=== PATIENT | female | born 1950 | race African-American/Black ===

== ENCOUNTER 2023-08-15 13:52 | Outpatient (OUT) | payer OTHER, SELFPAY ==
--- NOTE | 2023-08-15 14:10 | XR_ITS ---
The [address] [address] Patient Name: JUHI FAM MRN: [id number] date: 1950 Sex: F Assigned Patient Location: [facility] Current Patient Location: Accession/Order Number: [id number] Exam Date: 08/15/2023 14:15 Report Date: 08/16/2023 08:32 At the request of: ALEX WASHINGTON Procedure: XR chest 2V EXAMINATION: XR chest 2V HISTORY: Bronchitis J40 COMPARISON: No relevant comparison available. FINDINGS: LUNGS: No significant pulmonary parenchymal abnormalities. VASCULATURE: No increased pulmonary vasculature. PLEURA: No pneumothorax, effusion, or pleural thickening. CARDIAC: No cardiomegaly or cardiac silhouette abnormality. MEDIASTINUM: No visible mass or adenopathy. BONES: No fracture or visible bone lesion. OTHER: Negative. XR/XR chest 2V IMPRESSION: 1. Clear lungs. No acute cardiopulmonary process. Electronically authenticated by: ALEXA DOTY Date: 08/16/2023 08:32
== END 2023-08-15 13:53 | disposition home or self-care (01) ==
LOC: RAD 14:01
PROVIDERS: PCP Nurse Practitioner Family; Visit Provider Nurse Practitioner Family
DX: J40 Bronchitis, not specified as acute or chronic (principal); R09.89 Other specified symptoms and signs involving the circulatory and respiratory systems; R06.02 Shortness of breath
CPT/HCPCS: 71046

== ENCOUNTER 2025-09-12 10:22 | Outpatient (OUT) | payer OTHER, SELFPAY ==
--- OUTSIDE RECORDS SUMMARY | 2025-09-03 07:25 | XMS_ITS | Continuity of Care Document ---
Author Organization [facility] Address [address] [place] [address] Phone Care Team Providers Care Manager Card Name Role Phone Yumiko Morrell APRN Primary Care Provider Yumiko Morrell APRN Attending Provider Khris Rangel MD Attending Provider NON STAFF Primary Care Provider Unavailabl e Care Teams Patient Care Team Team Status: Active Member Role/Relationship Status Dates NON STAFF Primary Care Provider Active Visit Care Team Team Status: Inactive Member Role/Relationship Status Dates Yumiko Morrell APRN DIRECTOR FINANCIAL PLANNING-C Primary Care Provider Active Start: 2025 End: July 25, 2025Yumiko Morrell APRN DIRECTOR FINANCIAL PLANNING-CAttending ProviderActive Start: 2025 End: 2025 Visit Care Team Team Status: Inactive Member Role/Relationship Status Dates Yumiko Morrell APRN DIRECTOR FINANCIAL PLANNING-C Attending Provider Act leslie Start: 2025 End: 2025 Patient Care Team Team Status: Inactive Member Role/Relationship Status Dates Khris Rangel MD Attending Provider Active Star t: September 03, 2025 End: September 03, 2025NON STAFFPrimary Care ProviderActiveStart: September 03, 2025 End: September 03, 2025 Chief Complaint and Reason for Visit Chief Complaint Admit Date UA:Burning/Blood 2025 11 :06am r30.0 2025 11 :09am F/U AFTER DEXA September 03, 2025 11:57am Reason for Visit Admit Date UTI (urinary tract infection) July 11:06am Encounter for medication management Arthurchung eva 2024 11:57am Osteopenia September 03, 2025 11:57am Post-menopause September 03, 2025 11:57am Vitamin D deficiency September 03, 2025 11:57am Allergies, Adverse Reactions, Alerts Allergen Type Severity Reaction Last Updated Verified Status No Known Allergies Allergy Unknown September 03, 2025 12:03pmYesActive Social History Smoking Status Status Start Date End Date Date of Observa tion Smokes tobacco daily (finding) May 11, 2024 11:28am Observation Status Observation Response Date of Response Legal Sex Female (finding) [facility] 1949 Family History Relationship Condition Age at Onset Recorded Date/T rogers mother Diabetes mellitus Unknown DementiaUnknownHypertensionUnknowngrandparentDiabetes mellitusUnknownfather DeceasedUnknownHeart diseaseUnknownmotherDementiaUnknownFamily history of mental disorderUnknownHistory of strokeUnknownDiabetes mellitusUnknownHypertension Unknown Problems Active Problems Problem Diagnosis/Recorded Date Onset Date Stat us Depression with anxiety April 24, 2024 9:13am Unknown Active UTI (urinary tract infection) July 14, 2022 6:2 2am Unknown Active Medicare annual wellness vis it, subsequent May 13, 2024 9:47am Unknown Active Nicotine dependence May 13, 2024 9:56am Unknown Active Screening for osteoporosis May 13, 2024 9:51am Unkn own Active Mild hyperlipidemia April 24, 2024 9:13am Unknown Active Encounter for medication management January 04, 2025 2 :02pm Unknown Active Elevated parathyroid hormone March 12, 2025 6:54am Unk nown Active Vitamin B12 deficiency April 24, 2024 9:13am Unknown Active Osteoporosis July 04, 2024 9:07am Unknown Active Age related osteoporosis June 28, 2024 12:59pm U nknown Active Post-menopause May 13, 2024 9:52am Unknown Act leslie Osteopenia September 03, 2025 12:18pm Unknown Active Encounter for long-term curr ent use of medication July 03, 2024 2:06pm Unknown Active Essential hypertension April 24, 2024 9:13am Unknown Active BMI 20.0-20.9, adult May 13, 2024 9:50am Unknown Active Screening for lung cancer May 13, 2024 9:51am Unkno wn Active Screening for breast cancer May 13, 2024 9:51am Unk nown Active Acid reflux July 14, 2022 6:23am Unknown Active Rosacea April 24, 2024 9:13am Unknown Active Chronic bronchitis April 24, 2024 9:13am Unknown Active Vitamin D deficiency April 24, 2024 9:13am Unknown Active Inactive/Resolved Problems Problem Diagnosis/Recorded Date Onset Date Stat Acute maxillary sinusitis October 31, 2024 1:48pm Unk nown Resolved Rash November 28, 2024 11:19am Unknown R esolved Vertigo November 28, 2024 11:18am Unknown R esolved Medications Medication Status Dose Units Route Directions Qty Days Refills S tart Date Stop Date End Date Reason(s) Instructions Adherence Varenicline Tartrate (Chanti x Starting Month Box) 0.5 mg (11)- 1 mg (42) tablets,dose pack Discontinued 0 POper package ueehrldotw904Rzcuhiuvs 8th, 2024 11:00pmJanuary 2024 1:28pm Nicotine dependence Nicotine dependence, unspecified, uncomplicatedPO PER PKG DIRNeedle (Disp) 23 Gauge (Bd Regular Bevel [place]) 23 gauge x 3/4 needleActive0.Jggfy1186 July 01, 2024 11:00pmCobalamin deficiency Deficiency of other specified B group vitaminsAs directedDesoximetasone 0.25 % hgdzaXhpukgmdrjmz0PQMFFJBUCWEEGKpuiz as needed for skin ixqiqnruut406Gkysjozxg 8th, 2024 11:00pmOctober 2024 6:26amRosacea Rosacea, unspecifiedCholecalciferol (Vitamin D3) 125 mcg (5,000 unit) capsule Aoduhvdskofk089OWGMVLeqwt98415Iheuosnxq 18th, 2024 11:00pmNovember 2024 12:05pmEncounter for long-term current use of medication Vitamin D deficiency Age related osteoporosis Other intermediate accountant (current) drug therapy Vitamin D deficiency, unspecified Age-related osteoporosis without current pathological fractureCyanocobalamin (Vitamin B-12) 1,000 mcg/mL deuuglfpDjvpeerezyng5696SRMKIkocsj pytyh3415Apgt 2024 3:17pmNovember 2024 12:04pmCobalamin deficiency Deficiency of other specified B group vitaminsSyringe With Needle (Bd Eclipse Luer-Jigna) 3 mL 23 x 1 syringeDiscontinued0.Pcwfs285Cccz 2024 11:00pm July 30, 2025 12:15pmCobalamin deficiency Deficiency of other specified B group vitaminsInject one time monthly.Syringe With Needle (Bd Eclipse Luer-Jigna) 3 mL 23 x 1 syringeActive0.Rdmjc687Yjcougo 2024 12:15pmCobalamin deficiency Deficiency of other specified B group vitaminsInject one time monthly. Desoximetasone 0.25 % zqphvEpmjch0EMCVGXEMCDUWDHaarf as needed for skin dqxnraxaka367Dcwsoot 2024 6:26amRosacea Rosacea, unspecifiedUnknownHydrocodone-Acetaminophen (Forbes) 5-325 mg tablet Discontinued1 - 2TABPOEVERY 4-6 HOURS as needed for lect224Heoc 2017July 14, 2022 6:13amPostoperative pain of extremity Laceration of flexor tendon of hand Other acute postprocedural painSulfamethoxazole-Trimethoprim (Bactrim Ds) 800- 160 mg leltxjOxzgegpatnec9ZTSPZHdygv fjpxm2788Oxoa 2017 11:00pmpt2021 6:15amHydrocodone-Acetaminophen (Forbes) 5-325 mg tabletDiscontinued1 - 2TABPOEVERY 4-6 HOURS as needed for Pwlz710Vnvscke 2021 6:14amPostoperative pain of extremity Contracture of joint of finger Other acute postprocedural pain Contracture, unspecified handCephalexin (Keflex) 500 mg cbgctlcUlrgkrccsgfm507BW FOH5Q4206Virgonj 2017 11:00pmSept2021 6:13amDesoximetasone 0.25 % IevlcYdjskwlcudcg9KNPQYVHUPQNKMBFNUQiswoXxhor 2017 11:00pmJuly 14, 2022 6:21amrosciaAscorbic Acid (Vitamin C) (Vitamin C) 1,000 mg Tablet Extended RfjrjkzSvdzzezslaha2XGLFRDvicmTdidk 2017 11:00pmJuly 14, 2022 6:20amDiltiazem Hcl (Cardizem Cd) 300 mg Capsule,Extended Release 24hr Jdfkdevqodte522DTSSPlxceIrojs 2017 11:00pmJuly 14, 2022 6:21amhtn Cyanocobalamin (Vitamin B-12) 1,000 mcg/mL UbxxmjadHrtozlscsqjk8BQSQzhmum month January 11, 2018 11:00pmJuly 2023 11:00amOmeprazole 20 mg capsule,delayed release(DR/EC)Imvfkwrppgwc32EWFUZcefrVpkdi 2017 11:00pmJuly 2023 11:00amgerdAlbuterol Sulfate (Proair Hfa) 90 mcg/actuation Hfa Aerosol Inhaler Coxewymbfzkk5DXDOYEOFBIWPIHN6J as needed for shortness of breath wheezingJoint [facility] 2017 11:00pmJuly 2023 11:00amPrenat.Vits,Noe,Mjv-Vgdw-Ibqpf ( Vitamin) QpmrlxXhqayqsrttmd2XPBOQLtqywNlwpi 2017 11:00pm July 14, 2022 6:15amCalcium Citrate-Vitamin D3 (Calcium Citrate + D) 315- 200 mg-unit NazfdqKvnngvzdoann8WGMEPMayqcIhayp 2017 11:00pmJuly 2023 9:15amSulfamethoxazole-Trimethoprim (Bactrim Ds) 800-160 mg tabletDiscontinued1 TABPOTwice ivhcd228Meigt 2017 11:00pmy 2017 8:36amHydrocodone- Acetaminophen (Forbes) 5-325 mg tabletDiscontinued1 - 2TABPOEVERY 4-6 HOURS as needed for Iuto338Cxkmq 2021 6:14amPostoperative pain of extremity Nontraumatic rupture of tendon of finger of right hand Other acute postprocedural pain Spontaneous rupture of other tendons, right handMeloxicam 15 mg Tablet Ckvwuwbsquxl34TLAZJivutGyiiwynng 20th, 2022 11:00pmJuly 2023 9:15amBaclofen 10 mg FozfwnAzixlkychbnq05MAJRUnbdmZxomkwcun 20th, 2022 11:00pmJuly 2023 9:15amCephalexin 500 mg FcenmkhErehlcgyifff534OVFAAnfkq dailySept2021 11:00pmJuly 2023 9:15amCholecalciferol (Vitamin D3) (Vitamin D3) 50 mcg (2,000 unit) PvbanhrNfxzfsylepfg26LLLYYRdhkjWgzebhxtt 20th, 2022 11:00pmJuly 2023 9:15amMagnesium Oxide 400 mg magnesium QytdtiFiqmphivfviz640BBVNKjiwt July 13, 2022 11:00pmJuly 2023 9:15amCalcium Citrate-Vitamin D3 500 mg-12.5 mcg (500 unit) Tablet,ChewableDiscontinuedTABPOSept2021 11:00pmSept2021 6:15amCalcium Carbonate-Vitamin D3 (Calcium 600 With Vitamin D3) 600 mg-12.5 mcg (500 unit) capsuleActiveCAPPOSept2023 11:00pmUnknownMultivit With Min-Folic Acid (One Daily Womens 50 Plus) 0.4 mg tabletActiveTABPOSeptember 2023 11:00pmUnknownDoxycycline Monohydrate 100 mg tzblhzPkytwghsyrij150ZHUOJomzx xnyxu16040Vvjixfeg 2024 12:00amJuly 2024 10:34amMeclizine 25 mg uqrowxLhzluixckepf61AQOBWibof times daily as needed for ommkaolbj55360Uvxvxdhr 2024 12:00amNovember 2024 12:05pmVertigo Dizziness and giddinessTriamcinolone Acetonide 0.1 % ojdbuNqxwfzgtvyfi0XZGGOZ TOPICALTwice dqutg0612Yfkbvehj 2024 12:00amNovember 2024 12:06pm Osteoporosis Rash Age-related osteoporosis without current pathological fracture Rash and other nonspecific skin eruptionAmlodipine 5 mg bjkqieXcgxsivgegdu5TDPT DailyJuly 2023 11:00pmJuly 2023 11:00amFluticasone Propionate 50 mcg/actuation spray,ugmeygfcxcQuanwppytixc9SWFXJPUDVESTTHQNbpnfLkrr 1st, 2024 11:00pmJanuary 2024 1:27pmLosartan 100 mg fndygdIgtznzuzhdzm867OTHKVgyqf April 23, 2024 11:00pmJuly 2023 11:00amAmlodipine 5 mg tabletDiscontinued5 XZXRHjzny82784Barh 2023 10:57amJanuary 2024 1:48pmPrimary hypertension Essential (primary) hypertensionAlbuterol Sulfate (Proair Hfa) 90 mcg/actuation HFA aerosol blifliaBninfrhshgfj7FYBOLROFJMWOGWJ4W as needed for shortness of breath wheezing6.7305July 2023 10:57amJanuary 2024 1:48pmChronic bronchitis Unspecified chronic bronchitisCyanocobalamin (Vitamin B-12) 1,000 mcg/mL ltnigkpmEaypxyihpxlk5936DGHHPvrlrf aymgq16573Vcpv 2023 10:58amJanuary 2024 1:48pmCobalamin deficiency Deficiency of other specified B group vitaminsLosartan 100 mg tabletDiscontinued 779WTWQQwmsy00813Wjqp 2023 10:58amJanuary 2024 1:48pmPrimary hypertension Essential (primary) hypertensionOmeprazole 20 mg capsule,delayed release(DR/EC) Ytpcuuwvtznu63DVDHQcjww58735Zlzn 2023 10:59amJanuary 2024 1:48pm Gastroesophageal reflux disease Gastro-esophageal reflux disease without esophagitis gerdRomosozumab-Aqqg (Evenity) 210mg/2.34mL ( 105mg/1.17mLx2) syringe Zjpyyyeifnle375ZMDIDDQNfarmk 2024 12:00amNovember 2024 12:06pmAmlodipine 5 mg wdhumzBlubhrrgyiry3CSYCNnvdk56811Cvnbhzr 2024 1:47pm May 20, 2025 10:52amPrimary hypertension Essential (primary) hypertensionCyanocobalamin (Vitamin B-12) 1,000 mcg/mL qnixvcdkZpmhvn1803EVASNyqgrb dywii0016Xiiagqs 2024 1:47pmCobalamin deficiency Deficiency of other specified B group vitaminsUnknownLosartan 100 mg tablet Uvujfkebvbmy563CHWWRfeaq21444Tupcfao 2024 1:47pmJuly 2024 10:52am Primary hypertension Essential (primary) hypertensionOmeprazole 20 mg capsule,delayed release(DR/EC) Kxyynljxhvvx12QQVZYreij00212Btqawez 2024 1:47pmJuly 2024 10:52am Gastroesophageal reflux disease Gastro-esophageal reflux disease without esophagitis gerdAlbuterol Sulfate 90 mcg/actuation HFA aerosol tryehuyBksmkrbxnltc4WRUE HWWCXBLKJLE8U as needed for shortness of breath wheezing6.uary 2024 1:48pmJuly 2024 12:12pmChronic bronchitis Unspecified chronic bronchitisAmoxicillin-Pot Clavulanate 875-125 mg tablet Gaiwoecbrvja8IDMPDXysej pmqcl8894Nlllemh 2024 12:00amFebruary 2024 11:17amAcute maxillary sinusitis Acute maxillary sinusitis, unspecifiedAmlodipine 5 mg iinkvnTjkrac8YLKLRvacz8966 1July 2024 10:51amPrimary hypertension Essential (primary) hypertensionUnknownLosartan 100 mg lrdthpCknjtl116WZAEPwpxq 56920Xqgr 2024 10:51amPrimary hypertension Essential (primary) hypertensionUnknownOmeprazole 20 mg capsule,delayed release(DR/EC)Ikjbsq53IVREMwyag71034Ithh 2024 10:51amGastroesophageal reflux disease Gastro-esophageal reflux disease without esophagitis gerdUnknownAlbuterol Sulfate 90 mcg/actuation HFA aerosol cvswiagBfymgf7ZTUA IUFJVONAZUU8Y as needed for shortness of breath wheezing6.05July 2024 12:12pmChronic bronchitis Unspecified chronic bronchitisUnknownCephalexin 500 mg lbqcuzyWdrzrbbtuojf113LT POTwice pwtdv5373Bzzimfp 2024 11:00pmNovember 2024 12:04pmUrinary tract infection Urinary tract infection, site not specified Immunizations Immunization Event Date Not Given Reason Dose Number 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 Vaccine, 23 valentJuly 2018 Quadrivalent InfluenzaDecember 2014Tetanus, Diphtheria, Pertussis (Tdap) January 20, 2022Trivalent Influenza VaccineOctober 2015Trivalent Influenza VaccineSeptember 2019 Medical Equipment Device Date Implanted Device Details ALEXIS LION TENDON January 19, 2018 SUTURE ANCHOR, GUERO CORKSCREWJune 2017 Procedures Procedure Date Performed Status Urine Culture 2025 completed Relevant Diagnostic Tests and/or Laboratory Data Laboratory Results Test Collection Date/Time Result Date/Time Result Interpretation Reference Range Result Comment Performing Site Urine Color 2025 10:05am 2025 10 :13am Yellow Urine AppearanceOctober 2024 10:05amOctober 2024 10:13amCloudyUrine Specific GravityOct2024 10:05amOctober 2024 10:13am1.010Urine pH 2025 10:05amOctober 2024 10:13am5.0Urine Leukocyte Esterase 2025 10:05amOctober 2024 10:13amModerateUrine NitriteOctober 2024 10:05amOctober 2024 10:13amNegativeUrine ProteinOctober 2024 10:05amOctober 2024 10:56om95Wkiom Glucose (UA)2025 10:05am 2025 10:13amNegativeUrine KetonesOctober 2024 10:05amOctober 2024 10:13amNegativeUrine UrobilinogenOctober 2024 10:05amOctober 2024 10:13am0.2Urine BilirubinOctober 2024 10:05amOctober 2024 10:13am NegativeUrine Occult BloodOctober 2024 10:05amOctober 2024 10:13am Large Microbiology Results Procedure Source Result Collection Date/Time Result Date/Time Result Comment Performing Site Urine Culture Urine bacilli - 2 Days July 11:09am July 27, 2025 10:56am [facility] [id number] [address] [place] [id number] Vital Signs Vital Reading Result Reference Range Collection Date/Time Height 72 [in_i] September 03, 2025 12:29whRwzrdh23.13 kgNov2024 12:00pmHeart Rate74 /gsl03-122FbwgwfbySeptember 03, 2025 12:00pmOxygen saturation by Pulse qdypcpla97 % 95-100September 03, 2025 12:00pmBMI (Body Mass Index)20.0 kg/c7EicqjcycSeptember 03, 2025 12:00pm Advance Directives Advance Directive Response Recorded Date/ Time Advance Directives No November 5:01pm Insurance Providers Guarantor Melanie Brandt Address [address] [place] [address] [place] [id number] Info.Home Phone: Payer Group Member ID Coverage Type Subscriber Relationship to Subscriber Effective Date Expiration Date Aetkelley [facility] Id: [id number] L Brandt Id: [id number] [address] [place] [address] [address] [facility] [address] Home Phone: Email: [email or web address] [email or web address] Encounter Location(s) Arrival/Admit Date Discharge/Departure Date Discharge/Departure Disposition Provider(s) Departed Physician/ Provider Office Visit -[facility] 2025 11:06am 2025 11:15am Discharged to home care or self care (routine discharge) Yumiko Morrell APRN CNP Departed Referred -[facility] 2025 11:09am 2025 11:10am Discharged to home care or self care (routine discharge) Yumiko Morrell APRN CNP Departed Physician/ Provider Office Visit -[facility] September 03, 2025 11:57am September 03, 2025 12:24pm Discharged to home care or self care (routine discharge) Khris Rangel MD Recent Diagnosis Onset Date Admit Date UTI (urinary tract infection) Unknown Oc tober 2024 11:06am Encounter for medication management Unknown September 03, 2025 11:57am Osteopenia Unknown September 03, 025 11:57am Post-menopause Unknown September 03 11:57am Vitamin D deficiency Unknown September 032024 11:57am Assessments Diagnosis Onset Date Resolution Status Admit Date [facility] (urinary tract infection) [facility] 20[facility] 11:06amEncounter for medication managementacute[facility] 11:57am[facility]acute[facility] 2024 11:57amPost-menopauseacute September 03, 2025 11:57amVitamin D deficiencyacuteMonroe [facility] Medical [facility] 2024 11:57am Plan of Treatment Author Yumiko Morrell [facility] 2024 10:18am Reviewed results of urine dipstick with patient, and given both symptoms and physical exam, explained that a urinary tract infection is likely. The patient is encouraged to increased fluid intake, take antibiotics as prescribed, and to finish the entire course of antibiotics. Urine culture to be completed and will call with results in 3- 5 days. The female patient is reminded that antibiotic therapy can alter the effectiveness of oral control pills, and to utilize other control methods while completing this course of therapy. Patient instructed to follow up if symptoms are not improving within the next 5-7 days. Signs and symptoms of worsening symptoms (including pyelonephritis, and urosepsis) are reviewed with the patient, and the patient is instructed to go to the ER if this would occur. Author Isabel [facility] 2024 12:24pmDexa scan reviewed in detail with patient, demonstrating evidence of slight improvement of osteoporosis, to the level of osteopenia. Extensive discussion about current condition and treatment options available. Advised patient on appropriate calcium intake of 1200mg/day by a combination of diet and supplementation. Also advised patient on appropriate vitamin D intake of 600-800 IU/day through diet and supplementation. We discussed safe levels of sun exposure to increase vitamin D as well. We discussed the importance of weight bearing and balance exercise to maintain and improve bone health. We discussed prescription treatment options in detail. Based on dexa scan, medical history, and patient lifestyle, we will proceed with once yearly IV Reclast at this time. Risks and benefits were discussed in detail. [Labs from [] reviewed]. [We will order additional labs to assess for any underlying condition contributing to patient's condition], [as well as a repeat calcium prior to starting prescription treatment if indicated.] [We will review additional labs and contact patient if they indicate the need for any change in discussed treatment plan]. Provided orders for calcium and vitamin d lab for patient to have done at her convenience. Future Tests Future scheduled test information is unavailable Pending Tests Pending diagnostic test information is unavailable Future Visits Future appointment information is unavailable Future Procedures Procedure Name Ordered Date Scheduled Date Vitamin D 25 Hydroxy Total September 03, 2025 1 2:19pm Future Medications Future medication information is unavailable Patient Instructions Patient instructions are unavailable
--- NOTE | 2025-09-12 10:27 | MM_ITS ---
Patient Name: JUHI FAM MR#: [id number] : 1950 Exam Date: 09/12/2025 Ordering Doctor: ALEX WASHINGTON [facility] RADIOLOGY REPORT PROCEDURE: MM TOMOSYNTHESIS SCREENING BI COMPARISON: MM TOMOSYNTHESIS SCREENING BI, 06/27/2024. INDICATIONS: Screening Calculator Name NCI Breast Cancer Risk Assessment Tool 5 Year Breast Cancer Risk 1.80% Lifetime Breast Cancer Risk 4.20% Personal Breast Cancer No Personal Ovarian Cancer No Treatments None Family Cancers None LOCATION: The [facility] BREAST COMPOSITION: There are scattered areas of fibroglandular density. FINDINGS: DIAGNOSTIC CATEGORY 1--NEGATIVE. RIGHT BREAST: No significant suspicious finding. LEFT BREAST: No significant suspicious finding. RECOMMENDATIONS: ROUTINE MAMMOGRAM AND CLINICAL EVALUATION IN 12 MONTHS. Dictated by: Orville Snow DO on 09/12/2025 at 15:21 Approved by: Orville Snow DO on 09/12/2025 at 15:21
--- OUTSIDE RECORDS SUMMARY | 2025-09-12 10:28 | XMS_ITS | Clinical Summary ---
Author Organization [facility] Address [address], [address] [place] [address] Care Team Providers Care Radiotelegraph Operator Name Role Phone Unavailable Primary Care Provider Unavailabl e Allergies No known active allergies Medications MedicationSigDispense QuantityRefillsLast FilledStart DateEnd DateStatus omeprazole 20 MG EC tablet Take 1 tablet by mouth dailyActive cyanocobalamin 1000 MCG/ML injection Inject 1 mL into the muscle every 30 daysActive Multiple Vitamins-Minerals (THERAPEUTIC MULTIVITAMIN-MINERALS) tablet Take 1 tablet by mouth dailyActive ibuprofen (ADVIL;MOTRIN) 600 MG tablet Take 1 tablet by mouth 3 times daily as needed for Pain 30 tablet 06/30/2024ctive calcium carbonate 600 MG TABS tablet Take 1 tablet by mouth dailyActive losartan (COZAAR) 100 MG tablet Take 1 tablet by mouth dailyActive desoximetasone (TOPICORT) 0.25 % cream Apply topically 2 times daily Apply topically 2 times daily.Active vitamin D (CHOLECALCIFEROL) 25 MCG (1000 UT) TABS tablet Take 1 tablet by mouth dailyActive fluticasone (FLONASE) 50 MCG/ACT nasal spray by Nasal route08/10/2023ctive Active Problems ProblemNoted DateDiagnosed DateAge-related osteoporosis without current pathological otkrtfrs37/24/2024 Encounters DateTypeDepartmentCare InqqLayrbnmwyxw63/09/2025Transcribe Orders [facility] [address] [place] [address] Khris Rangel MD Encounter for long-term (current) use of medications (Primary Dx); Asymptomatic menopausal state; Osteoporosis, unspecified osteoporosis type, unspecified pathological fracture cvrcfzog25/09/2025Transcribe Orders [facility] [address] [place], [place] [id number] Khris Rangel MD Asymptomatic postmenopausal status (Primary Dx); Age related osteoporosis, unspecified pathological fracture mvsprenc51/04/2025 Transcribe Orders [facility] [address] [place] [address] Khris Rangel MD Osteoporosis, unspecified osteoporosis type, unspecified pathological fracture presence (Primary Dx)06/25/2025Orders Only [facility] [address] [place], [place] [address] Khris Rangel MD from Last 3 Months Immunizations ImmunizationAdministration DatesNext DueTDaP, ADACEL (age 10y-64y), BOOSTRIX (age 10y+), IM, 0.5mL01/20/2022 Social History Tobacco UseTypesPacks/DayYears UsedDateSmoking Tobacco: Every DayCigarettes Smokeless Tobacco: Never Tobacco Cessation:Ready to Q uit: Not Asked; Counseling Given: Not Answered Alcohol UseStandard Drinks/WeekCommentsYes0 (1 standard drink = 0.6 oz pure alcohol)AUDIT-CAnswerDate RecordedQ1: How often do you have a drink containing alcohol?2-3 times a week06/30/2024Q2: How many drinks containing alcohol do you have on a typical day when you are drinking?1 or Q3: How often do you have six or more drinks on one occasion?Never06/30/2024CommentsNoSex and Gender InformationValueDate RecordedSex Assigned at BirthNot on fileLegal Sex Rytqbf3812/03/2012 11:13 AM ESTGender IdentityNot on fileSexual OrientationNot on file Last Filed Vital Signs Vital SignReadingTime TakenCommentsBlood Rgatyarq462/6608 9:56 AM EDT Bxxiq699106/03/2025 9:56 AM HFNQmzfmgtqiwn05.6 ??C (97.9 ??F)06/03/2025 9:56 AM EDTRespiratory Zvll007106/03/2025 9:56 AM EDTOxygen Yyehgpzfvf86%12/09/2024 9:38 PM ESTInhaled Oxygen Concentration--Dtmsfy73.1 kg (148 lb)06/03/2025 9:56 AM EDT Kbefyk489.9 cm (6')06/03/2025 9:56 AM EDTBody Mass Index20.0706/03/2025 9:56 AM EDT Plan of Treatment Health MaintenanceDue DateLast DoneCommentsDepression Uweehe5307/25/1964Hepatitis C lmwvhm4007/25/19703721Urepuu41/02/0374Rrrdbxckuiy81/02/1997Colorectal Cancer Screen 1997FIT/FOBT: Average risk1997Fecal-DNA (Cologuard): Average risk 1997Sigmoidoscopy/CT yomymbdiuhho98/02/1997Shingles vaccine (1 of 2) 2002Annual Wellness Visit (Medicare Advantage)5COVID-19 Vaccine ( season)/, 08/03/2021, 07/13/2021reast cancer ffhkyh52/4Respiratory Syncytial Virus (RSV) or age 60 yrs+ (1 - 1-dose 75+ series)2027DTaP/Tdap/Td vaccine (2 - Td or Tdap) /2Pneumococcal 50+ years MfwgmnoUaovftlqx00/12/2024, 04/23/2019, 04/20/2018Flu bulrkycLmrgatwwz20/28/2025, 09/04/2024, 06/24/2023, Additional history existsDEXA (modify frequency per FRAX score)Completed 07/02/2025, 06/27/2024Hepatitis A vaccineAged OutNo longer eligible based on patient's age to complete this topicHepatitis B vaccineAged OutNo longer eligible based on patient's age to complete this topicHib vaccineAged OutNo longer eligible based on patient's age to complete this topicMeningococcal (ACWY) vaccineAged OutNo longer eligible based on patient's age to complete this topicMeningococcal B vaccineAged OutNo longer eligible based on patient's age to complete this topicPolio vaccineAged OutNo longer eligible based on patient's age to complete this topic Procedures Procedure NamePriorityDate/TimeAssociated DiagnosisCommentsDEXA BONE DENSITY AXIAL RFCVUEELWaxeahe03/09/2025 10:26 AM EDT Asymptomatic menopause SARTHAK CONNOR DIGITAL SCREEN VQRZAONJVZccfxyl25/04/2024 9:46 AM EDT Encounter for screening mammogram for malignant neoplasm of breast from Last 3 Months or Most Recently Relevant to Health Maintenance Results * DEXA BONE DENSITY AXIAL SKELETON (07/02/2025 10:26 AM EDT)Anatomical Region LateralityModalityHead, C-spine, T-spine, L-spine, ChestRadiographic Imaging Specimen (Source)Anatomical Location / LateralityCollection Method / Volume Collection TimeReceived Time07/04/2025 11:12 AM EDT Impressions 07/04/2025 12:02 PM EDT Osteopenia by WHO criteria. RECOMMENDATIONS: 1. All patients should optimize their calcium and vitamin D intake. 2. Consider FDA-approved medical therapies in postmenopausal women and men aged 50 years and older, based on the following: - A hip or vertebral (clinical or morphometric) fracture - T-score less than or equal to -2.5 at the femoral neck or spine after appropriate evaluation to exclude secondary causes - Low bone density (T-score between -1.0 and -2.5 at the femoral neck or spine) and a 10-year probability of a hip fracture greater than or equal to 3% or a 10-year probability of a major osteoporosis-related fracture greater than or equal to 20% based on FRAX calculation. - Clinician judgment and/or patient preferences may indicate treatment for people with 10-year fracture probabilities above or below these levels - Further guidance on treatment can be found at the National Osteoporosis Foundation's website bonesource.org. 3. Patients with diagnosis of osteoporosis or at high risk for fracture should have regular bone mineral density tests. For patients eligible for Medicare, routine testing is allowed once every 2 years. The testing frequency can be increased to one year for patients who have rapidly progressing disease, those who are receiving or discontinuing medical therapy to restore bone mass or have additional risk factors. Template code: ??RPnmNSD_DX_dxa Narrative 07/04/2025 12:02 PM EDT EXAMINATION: BONE DENSITOMETRY 07/02/2025 10:26 am TECHNIQUE: A bone density dual x-ray absorptiometry (DXA) scan was performed of the lumbar spine and left hip on a PerfectServe system. COMPARISON: 06/27/2024. HISTORY: ORDERING SYSTEM PROVIDED HISTORY: Asymptomatic menopause Gender: F Age: 74 y/o FINDINGS: LUMBAR SPINE: L1-L4 BMD: 1.487 g/cm2 T-score: 2.6 Z-score: 3.5 Statistical comparison could not be made to the prior exam due to unavailability of prior imaging. LEFT TOTAL HIP: BMD: 0.741 g/cm2 T-score: -2.1 Z-score: -1.5 LEFT FEMORAL NECK: BMD: 0.801 g/cm2 T-score: -1.7 Z-score: -0.8 Statistical comparison could not be made to the prior exam due to unavailability of prior imaging. FRAX 10-YEAR PROBABILITY OF FRACTURE: 10-year fracture risk is performed using the [employer] FRAX calculator based on patient-reported risk factors. Major osteoporotic fracture: 4.6% Hip fracture: 1.5% Other situations known to alter the reliability of the FRAX score should be considered when making treatment decisions, including chronic glucocorticoid use and past treatments. ??Further guidance on treatment can be found at the National Osteoporosis Foundation's website bonesource.org. Procedure Note Buzz Henry MD - 07/04/2025 EXAMINATION: BONE DENSITOMETRY 07/02/2025 10:26 am TECHNIQUE: A bone density dual x-ray absorptiometry (DXA) scan was performed of the lumbar spine and left hip on a PerfectServe system. COMPARISON: 06/27/2024. HISTORY: ORDERING SYSTEM PROVIDED HISTORY: Asymptomatic menopause Gender: F Age: 74 y/o FINDINGS: LUMBAR SPINE: L1-L4 BMD: 1.487 g/cm2 T-score: 2.6 Z-score: 3.5 Statistical comparison could not be made to the prior exam due to unavailability of prior imaging. LEFT TOTAL HIP: BMD: 0.741 g/cm2 T-score: -2.1 Z-score: -1.5 LEFT FEMORAL NECK: BMD: 0.801 g/cm2 T-score: -1.7 Z-score: -0.8 Statistical comparison could not be made to the prior exam due to unavailability of prior imaging. FRAX 10-YEAR PROBABILITY OF FRACTURE: 10-year fracture risk is performed using the [employer]RAX calculator based on patient-reported risk factors. Major osteoporotic fracture: 4.6% Hip fracture: 1.5% Other situations known to alter the reliability of the FRAX score shouldbe considered when making treatment decisions, including chronicglucocorticoid use and past treatments. Further guidance on treatment can be found atthe National Osteoporosis Foundation's website bonesource.org. IMPRESSION: Osteopenia by WHO criteria. RECOMMENDATIONS: 1. All patients should optimize their calcium and vitamin D intake. 2. Consider FDA-approved medical therapies in postmenopausal women andmen aged 50 years and older, based on the following: - A hip or vertebral (clinical or morphometric) fracture - T-score less than or equal to -2.5 at the femoral neck or spine after appropriate evaluation to exclude secondary causes - Low bone density (T-score between -1.0 and -2.5 at the femoral neck or spine) and a 10-year probability of a hip fracture greater than or equalto 3% or a 10-year probability of a major osteoporosis-related fracturegreater than or equal to 20% based on FRAX calculation. - Clinician judgment and/or patient preferences may indicate treatmentfor people with 10-year fracture probabilities above or below these levels - Further guidance on treatment can be found at the NationalOsteoporosis Foundation's website bonesource.org. 3. Patients with diagnosis of osteoporosis or at high risk for fracture should have regular bone mineral density tests. For patients eligiblefor Medicare, routine testing is allowed once every 2 years. The testing frequency can be increased to one year for patients who have rapidly progressing disease, those who are receiving or discontinuing medicaltherapy to restore bone mass or have additional risk factors. Template code: RPnmNSD_DX_dxa Authorizing ProviderResult TypeResult StatusThomas A Olexa MDIMG DEXA ORDERABLES Final Result * SARTHAK CONNOR DIGITAL SCREEN BILATERAL (06/27/2024 9:46 AM EDT)Anatomical Region LateralityModalityBreastBilateralMammographySpecimen (Source)Anatomical Location / LateralityCollection Method / VolumeCollection TimeReceived Time 07/13/2024 11:41 AM EDT Impressions 07/13/2024 11:42 AM EDT No mammographic evidence of malignancy BIRADS: BIRADS - CATEGORY 1 Negative. ??Normal interval follow-up is recommended in 12 months. OVERALL ASSESSMENT - NEGATIVE A letter of notification will be sent to the patient regarding the results. The [employer] recommends annual mammograms for women 40 years and older. Performing Facility: [place] [id number] [facility] 07/13/2024 11:42 AM EDT EXAMINATION: SCREENING DIGITAL BILATERAL MAMMOGRAM WITH TOMOSYNTHESIS, 06/27/2024 TECHNIQUE: Screening mammography was performed with tomosynthesis including MLO and CC views of the bilateral breasts. Computer aided detection was used for the interpretation of this exam. COMPARISON: June 08, 2023 and May 31, 2022 HISTORY: Screening. FINDINGS: There are scattered areas of fibroglandular density. ??There is no dominant mass, architectural distortion or concerning grouping of microcalcification in either breast. Authorizing ProviderResult TypeResult StatusJennifer Rohrbacher GROUN[employer]KEEPING YARDMAN - CNPIMG MAMMOGRAPHY ORDERABLESEdited Result - Final from Last 3 Months or Most Recently Relevant to Health Maintenance [place] [address] * Guarantor: Melanie Brandt TypeRelation to PatientDate of BirthPhone Billing AddressThird Green Party [id number] [facility] [address] [place] [phone]
--- OUTSIDE RECORDS SUMMARY | 2025-09-12 10:28 | XMS_ITS | Clinical Summary ---
Author Organization [facility] Address [address] [place] [address] Care Team Providers Care Program Director Scouting Name Role Phone Unavailable Primary Care Provider Unavailabl e Social History Tobacco UseTypesPacks/DayYears UsedDateSmoking Tobacco: Never Assessed CommentsUnknownSex and Gender InformationValueDate RecordedSex Assigned at Not on fileLegal CsbFhbtyk22/15/2023 6:43 PM EDTGender IdentityNot on fileSexual OrientationNot on file Last Filed Vital Signs Vital SignReadingTime TakenCommentsBlood Jeenshzv127/8809 12:00 PM EDT Pulse--Temperature--Respiratory Rate--Oxygen Saturation--Inhaled Oxygen Concentration--Cuhtzl58.2 kg (157 lb)06/29/2022 12:00 PM WFWRrciqt997.8 cm (5' 10 )06/29/2022 12:00 PM EDTBody Mass Index22.5309 12:00 PM EDT Plan of Treatment Not on file
--- OUTSIDE RECORDS SUMMARY | 2025-09-12 10:28 | XMS_ITS | Patient Health Record ---
Author Organization [facility] Address [address] [place] [address] Care Team Providers Care Contract Administrative Assistant Name Role Phone [place] Unavailable [phone] Self, Referral Unavailable Unavailable Reason For Referral No Information Medications Medication SIG (Take, Route, Frequency, Duration) Notes Start Date End Date Status losartan ActivebaclofenActiveomeprazoleActive Social History Tobacco Use: Social History Observation Description Date Details (start date - stop date) Never Smoker NA - NA Smoking History Question Answer Notes Smoking Status NonSmoker Problems Problem Type SNOMED Code ICD Code Onset Dates Problem Status W/U Status Risk Notes Problem Contracture of joint of hand (54091956) 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) Activeconfirmed Plan Of Treatment Pending Test Test Name Order Date EKG 08/01/2023 BMP 08/01/2023 CBC W Diff 08/01/2023 MTE - Right Finger 3v AP/LAT/OBLIQUE 731 40 10/12/2023 MTE - Right Finger 3v AP/LAT/OBLIQUE 731 40 12/28/2023 MTE - Right Finger 3v AP/LAT/OBLIQUE 731 40 07/13/2023 MTE - Right Finger 3v AP/LAT/OBLIQUE 731 40 11/09/2023 Future Test Test Name Order Date MTE - Right Finger 3v AP/LAT/OBLIQUE 731 40 12/06/2023 Insurance Providers Payer Name Payer Address Payer Phone Subscriber Number Group Number Insured Name Patient Relationship to Insured Coverage Start Date Coverage End Date [facility] [address] [place] [address] [id number] [employer]UHI [employer] Self - patient is the insured Medical (General) History Medical History History ICD Code Asthma/COPD Yes High Blood Pressure: YesBariatric Surgery: YesHave you been in close contact with someone who has had MRSA within the last year? NoHave you ever had or presently have MRSA? NoAre you a healthcare worker? NoSurgical History Surgery Date(Month/Year) Right ring finger arthrodesis 09/27/2023 RIGHT RING FINGER 2019 [facility]PASS
--- OUTSIDE RECORDS SUMMARY | 2025-09-12 10:31 | XMS_ITS | CCD ---
Author Organization [facility] Care Team Providers Care Drywall Professional Name Role Phone Unavailable Primary Care Provider Unavailabl e Rohrbacher, Yumiko Unavailable [phone] MD Jez Omalley Attending Provider JENNIE Morrell Primary Care Provider Unavailable Primary Care Provider Unavailabl e Rohrbacher, Yumiko Admitting Unavailable Rohrbacher, Yumiko Attending Unavailable Siriarbacheritika, Yumiko Primary Care Unavailable Kishor Pritchett Attending Unavailable Kishor Pritchett Admitting Unavailable Siriarbacher, Yumiko Primary Care Unavailable Unavailable Primary Care Provider Unavailabl e Rohrbacher Yumiko SCHNEIDER Primary Care Provider Rohrbacher Yumiko SCHNEIDER Attending Provider ROHRBACHER, YUMIKO Referring Unavailable ROHRBACHER, YUMIKO Referring Unavailable ROHRBACHER, YUMIKO Referring Unavailable MAKAYLA RANGEL Referring Unavailable ROHRBACHER, YUMIKO Referring Unavailable ROHRBACHER, YUMIKO Referring Unavailable ROHRBACHER, YUMIKO Referring Unavailable ROHRBACHER, YUMIKO Referring Unavailable ROHRBACHER, YUMIKO Referring Unavailable KEEGAN TEJEDA Attending Unavailable ROHRBACHER, YUMIKO Referring Unavailable ROHRBACHER, YUMIKO Referring Unavailable ROHRBACHER, YUMIKO Referring Unavailable ROHRBACHER, YUMIKO Referring Unavailable Rohrbacher, Yumiko Attending Unavailable Rohrbacher, Yumiko Admitting Unavailable Rohrbacher Yumiko SCHNEIDER Primary Care Provider RohrbacheYumiko yost APRN Attending Provider [phone] Makayla Rangel MD Attending Provider NON STAFF Primary Care Provider Unavailabl e Medications Current Medications MedicationDrug Class(es)DatesSig (Normalized)Sig (Original)Albuterol Sulfate (Proair Hfa) 90 mcg/actuation Hfa Aerosol Inhaler (1 source)Start: 74-51-2455otcg 1 puff(s) by inhalation every four hours Albuterol Sulfate (Proair Hfa) 90 mcg/actuation Hfa Aerosol Inhaler Active 2 PUFF INHALATION Q4H January 12, 2018 12:00amazithromycin 250 mg oral tablet (3 sources)Macrolide AntimicrobialStart: 24-87-2277Ojezriuiifza 250 MG 2 tablet on the first day, then 1 tablet daily for 4 days Orally Once a day for5 day(s) Jul, ActiveStart: 07-02-2023 End: 77-08-3121Bzlungjeeuni 500 MG 1 tablet Orally x 5 days Jun, Jun, ActiveBD Syringe/Needle 25G X 5/8 (20 sources)Start: 67-92-3528NI Syringe/Needle 25G X 5/8 as directed subcutaneous monthly Mar, ActiveBD Syringe/Needle 25G X 5/8 as directed subcutaneous monthly for 90 days Activebenzonatate 200 mg oral capsule (2 sources)Non-narcotic AntitussiveStart: 81-90-3621wtsn 1 capsule by mouth every eight hoursBenzonatate 200 MG 1 capsule Orally Three times a day for 10 days Jul, Activecalcium carbonate 1500 mg oral tablet (13 sources)take 1 tablet by mouth once dailycalcium carbonate 600 MG TABS tablet Take 1 tablet by mouth daily Activecalcium carbonate 1500 mg / cholecalciferol 500 unt oral capsule (4 sources)Vitamin DStart: 29-44-6851tgvdmzmtrjcuuw 2.5 mg/ml topical cream (20 sources)CorticosteroidStart: 07-02-2024 End: 79-11-2888Ktwcr: 01-12-2018 End: 51-07-1098Gdmhpqlywvinjy 0.25 % Cream Discontinued 1 APPLICATOR TOPICAL Daily January 11, 2018 11:00pm July 14, 2022 6:21am rosciadesoximetasone (TOPICORT) 0.25 % cream Apply topically 2 times daily Apply topically 2 times daily.ActiveDesoximetasone 0.25 % apply sparingly to affected area twice a day as directed if needed Externallyonce a day for 30 day(s) Ggpynk61 actuat fluticasone propionate 0.1 mg/actuat / salmeterol 0.05 mg/actuat dry powder inhaler (3 sources)Corticosteroid, beta2-Adrenergic AgonistStart: 37-02-8275uaga 1 puff(s) by inhalation twice dailyFluticasone-Salmeterol 100-50 MCG/ACT 1 puff Inhalation Twice a day for 30 days Jul, Activeibuprofen 600 mg oral tablet (13 sources)Nonsteroidal Anti-inflammatory DrugStart: 86-56-2438yvtl 1 tablet by mouth three times daily as needed for painibuprofen (ADVIL;MOTRIN) 600 MG tablet Take 1 tablet by mouth 3 times daily as needed for Pain 30 tablet 06/30/2024 ActivemethylPREDNISolone 4 mg oral tablet (3 sources)CorticosteroidStart: 27-07-8350gofzinZMQHUFJhzzdh 4 MG as directed Orally daily for 6 days Jul, ActiveMultiple Vitamins-Minerals (THERAPEUTIC MULTIVITAMIN-MINERALS) tablet (17 sources)take 1 tablet by mouth once dailyMultiple Vitamins-Minerals (THERAPEUTIC MULTIVITAMIN-MINERALS) tablet Take 1 tablet by mouth daily Active take 1 tablet by mouth once dailyMultiple Vitamins-Minerals (THERAPEUTIC MULTIVITAMIN-MINERALS) tablet Take 1 tablet by mouth daily 0 ActiveMultivit With Min-Folic Acid (One Daily Womens 50 Plus) 0.4 mg tablet (4 sources)Start: 65-84-5383ipwq 1 tablet by mouth onceStart: 05-80-7681tget 1 tablet by mouth onceStart: 88-72-8695qvgg 1 tablet by mouth onceMultivit With Min-Folic Acid (One Daily Womens 50 Plus) 0.4 mg tablet Active TAB PO June 12:00am Complies with drug hr orphenadrine citrate 100 mg extended release oral tablet (1 source)Muscle RelaxantStart: 07-02-2023 End: 02-49-1502sawd 1 tablet by mouth twice dailyOrphenadrine Citrate ER 100 MG 1 tablet Orally Twice a day x 7 days Jun, Jun, ActivepredniSONE 20 mg oral tablet (1 source)Start: 07-02-2023 End: 70-29-9079vqgp 1 tablet by mouth once dailypredniSONE 20 MG 1 tablet Orally Once a day x 7 days Jun, Jun, ActiveProAir HFA 108 (90 Base) MCG/ACT (13 sources)take 2 puff(s) by inhalation every six hours as neededProAir HFA 108 (90 Base) MCG/ACT 2 puffs as needed Inhalation every 6 hrs for 30 day(s) Active Syringe With Needle (Bd Eclipse Luer-Jigna) 3 mL 23 x 1 syringe (4 sources)Start: 06-82-5704Yxtttyp With Needle (Bd Eclipse Luer-Jigna) 3 mL 23 x 1 syringe Active 0 .Route 12 0 July 30, 2025 12:15pm Cobalamin deficiency Deficiency of other specified B group vitamins Inject one time monthly.Start: 05-21-2025 End: 41-57-7820Jsqzwmb With Needle (Bd Eclipse Luer-Jigna) 3 mL 23 x 1 syringe Discontinued 0 .Route 12 0 May 20, 2025 11:00pm July 30, 2025 12:15pm Cobalamin deficiency Deficiency of other specified B group vitamins Inject one time monthly.Start: 77-47-2139Uvklqcx With Needle (Bd Eclipse Luer-Jigna) 3 mL 23 x 1 syringe Active 0 .Route 12 May 21, 2025 12:00am Inject one time monthly. tiZANidine 2 mg oral tablet (4 sources)Central alpha-2 Adrenergic AgonistStart: 91-50-0803efju 1 tablet by mouth every eight hourstiZANidine HCl 2 MG 1 tablet as needed Orally Three times a day for 10 days Jun, Active Completed/Discontinued Medications MedicationDrug Class(es)DatesSig (Normalized)Sig (Original)acetaminophen 500 mg oral tablet (2 sources)Start: 12-09-2024 End: 39-07-6082yiyl 4000 mg by mouth every twenty-four hours1,000 mg, Oral, ONCE, 1 dose, On 12/09/24 at 2345, Maximum dose of acetaminophen is 4000 mg fromall sources in 24 hours.Start: 01-20-2022 End: 15-81-5388wztlljrdwfqeb (TYLENOL) tablet 650 mgacetaminophen 325 mg / HYDROcodone bitartrate 5 mg oral tablet (16 sources)Opioid AgonistStart: 01-19-2018 End: 96-02-8410lxyy 1 tablet by mouth every four to six hours as needed for pain Hydrocodone-Acetaminophen ([place]) 5-325 mg tablet Discontinued 1 - 2 TAB PO EVERY 4-6 HOURS as needed for Pain 50 0 August 17, 2018 July 14, 2022 6:14am Postoperative pain of extremity Contracture of joint of finger Other acute postprocedural pain Contracture, unspecified handtake 1 tablet by mouth every six hoursHYDROcodone-Acetaminophen 5-325 MG 1 tablet as needed Orally every 6 hrs [id number] 200 actuat albuterol 0.09 mg/actuat metered dose inhaler (20 sources)beta2-Adrenergic AgonistStart: 01-12-2018 End: 49-73-4952sfza 1 puff(s) by inhalation every four hours as needed for wheezingAlbuterol Sulfate 90 mcg/actuation HFA aerosol inhaler Discontinued 2 PUFF INHALATION Q4H as neededfor shortness of breath wheezing 6.7 30 5 October 31, 2024 1:48pm May 20, 2025 12:12pm Chronic bronchitis Unspecified chronic bronchitistake 2 puff(s) by inhalation every six hours as neededProAir HFA 108 (90 Base) MCG/ACT 2 puffs as needed Inhalation every 6 hrs for 30 day(s) Active amLODIPine 5 mg oral tablet (18 sources)Dihydropyridine Calcium Channel BlockerStart: 04-24-2024 End: 34-27-8493kjfl 1 tablet by mouth once dailyAmlodipine 5 mg tablet Discontinued 5 MG PO Daily 90 90 1 October 31, 2024 1:47pm May 20, 2025 1 0:52am Primary hypertension Essential (primary) hypertensionStart: 09-30-2023 take 1 tablet by mouth every twenty-four hoursamLODIPine Besylate 5 MG 1 tablet Orally Once a day for 30 days Sep, Activeamoxicillin 875 mg / clavulanate 125 mg oral tablet (4 sources)Penicillin-class AntibacterialStart: 10-31-2024 End: 05-74-5047wbbl 1 tablet by mouth twice dailyAmoxicillin-Pot Clavulanate 875-125 mg tablet Discontinued 1 TAB PO Twice daily 14 7 0 October 12:00am November 28, 2024 11:17am Acute maxillary sinusitis Acute maxillary sinusitis, unspecifiedascorbic acid 1000 mg extended release oral tablet (9 sources)Vitamin CStart: 01-12-2018 End: 65-63-6050dfvx 1 tablet by mouth once dailyAscorbic Acid (Vitamin C) (Vitamin C) 1,000 mg Tablet Extended Release Discontinued 1 TAB PO Daily January 11, 2018 11:00pm July 14, 2022 6:20amtake 1 tablet by mouth once daily vitamin C (ASCORBIC ACID) 500 MG tablet Take 500 mg by mouth daily Activetake 1 tablet by mouth once dailyvitamin C (ASCORBIC ACID) 500 MG tablet Take 500 mg by mouth daily 0 Activebaclofen 10 mg oral tablet (14 sources)gamma-Aminobutyric Acid-ergic AgonistStart: 07-14-2022 End: 86-25-3678yfhi 1 tablet by mouth once dailyBaclofen 10 mg Tablet Discontinued 10 MG PO Daily July 13, 2022 11:00pm April 24, 2024 9:15am Calcium Citrate + D3 315-250 MG-UNIT (9 sources)take 1 tablet by mouth twice dailyCalcium Citrate + D3 315-250 MG- UNIT 1 tablet Orally Twice a day Not-Takingtake 1 tablet by mouth twice daily Calcium Citrate + D3 315-250 MG-UNIT 1 tablet Orally Twice a day Activecalcium citrate 1500 mg / cholecalciferol 200 unt oral tablet (5 sources)Vitamin DStart: 01-12-2018 End: 84-71-0362tiyu 1 tablet by mouth once dailyCalcium Citrate-Vitamin D3 (Calcium Citrate + D) 315-200 mg-unit Tablet Discontinued 1 TAB PO DailyJanuary 11, 2018 11:00pm April 24, 2024 9:15amCalcium Citrate-Vitamin D3 (1 source)Start: 07-14-2022 End: 35-51-9738Ytbjonj Citrate-Vitamin D3 Discontinued TAB PO July 14, 2022 12:00am July 14, 2022 7:15amCalcium Citrate-Vitamin D3 500 mg-12.5 mcg (500 unit) Tablet,Chewable (4 sources)Start: 07-14-2022 End: 82-59-0634Rtjsbqy Citrate-Vitamin D3 500 mg-12.5 mcg (500 unit) Tablet,Chewable Discontinued TAB PO 2021 11:00pm July 14, 2022 6:15amStart: 07-14-2022 End: 99-43-8508Vgltklq Citrate-Vitamin D3 500 mg-12.5 mcg (500 unit) Tablet,Chewable Discontinued TAB PO 2021 12:00am July 14, 2022 7:15amcephalexin 500 mg oral capsule (14 sources)Cephalosporin AntibacterialStart: 2025 End: 60-26-2760mhrz 1 capsule by mouth twice dailyCephalexin 500 mg capsule Discontinued 500 MG PO Twice daily 10 5 0 July 24, 2025 11:00pm September 03, 2025 12:04pm Urinary tract infection Urinary tract infection, site not specifiedStart: 07-12-2022 End: 69-63-3020uxkl 1 capsule by mouth twice dailyCephalexin 500 mg Capsule Discontinued 500 MG PO Twice daily July 13, 2022 11:00pm April 9:15amStart: 08-17-2018 End: 04-28-5112wsah 1 capsule by mouth every eight hoursCephalexin (Keflex) 500 mg capsule Discontinued 500 MG PO Q8H 15 5 0 August 16, 2018 11:00pm Sept 2021 6:13amcholecalciferol 0.125 mg oral capsule (20 sources)Vitamin DStart: 07-12-2024 End: 86-35-2930zekq 1 capsule by mouth once dailyCholecalciferol (Vitamin D3) 125 mcg (5,000 unit) capsule Discontinued 125 MCG PO Daily 56 56 0 July 11, 2024 11:00pm September 03, 2025 12:05pm Encounter for long-term current use of medication Vitamin D deficiency Age related osteoporosis Other retirement (current) drug therapy Vitamin D deficiency, unspecified Age-related osteoporosis without current pathological fractureStart: 07-14-2022 End: 15-23-1370uady 1 capsule by mouth once dailyCholecalciferol (Vitamin D3) (Vitamin D3) 50 mcg (2,000 unit) Capsule Discontinued 50 MCG PO Daily July 13, 2022 11:00pm April 24, 2024 9:15amtake 1 tablet by mouth once dailyvitamin D (CHOLECALCIFEROL) 25 MCG (1000 UT) TABS tablet Take 1 tablet by mouth daily Activetake 1 capsule by mouth every twenty-four hoursVitamin D3 50 MCG (2000 UT) 1 capsule Orally Once a day Not-Fdeotl67 hr dilTIAZem hydrochloride 300 mg extended release oral capsule (5 sources)Calcium Channel BlockerStart: 01-12-2018 End: 21-07-2318imkn 1 capsule by mouth once daily, then take 1 capsule by mouth every twenty-four hoursDiltiazem Hcl (Cardizem Cd) 300 mg Capsule,Extended Release 24hr Discontinued 300 MG PO Daily 2017 11:00pm July 14, 2022 6:21am htndoxycycline monohydrate 100 mg oral tablet (7 sources)Tetracycline-class DrugStart: 11-28-2024 End: 52-12-8656yklt 1 tablet by mouth twice dailyDoxycycline Monohydrate 100 mg tablet Discontinued 100 MG PO Twice daily 20 10 0 November 282:00am May 20, 2025 10:34amStart: 99-64-7881lqsg 1 tablet by mouth every twelve hours Doxycycline Hyclate 100 MG 1 tablet Orally Twice a day for 10 days Apr, Activefluticasone propionate 0.05 mg/actuat metered dose nasal spray (20 sources)CorticosteroidStart: 04-24-2024 End: 85-92-4440Gikbohzyvfx Propionate 50 mcg/actuation spray,suspension Discontinued 2 SPRAY INTRANASAL Daily 2023 11:00pm October 31, 2024 1:27pmStart: 23-14-5605ceccvyshmna (FLONASE) 50 MCG/ACT nasal spray by Nasal route 08/10/2023 ActiveStart: 73-27-0405ozih 1-2 spray(s) nasal route once daily Fluticasone Propionate 50 MCG/ACT 1-2 spray in each nostril Nasally Once a day for 30 days Jul, ActiveStart: 63-70-1775hamv 1-2 spray(s) nasal route once dailyFluticasone Propionate 50 MCG/ACT 1-2 spray in each nostril Nasally Once a day for 30 days Jul, Active1 ml ketorolac tromethamine 30 mg/ml cartridge (1 source)Nonsteroidal Anti-inflammatory Drug, Cyclooxygenase InhibitorStart: 12-09-2024 End: mg, IntraMUSCular, ONCE, 1 dose, On 12/09/24 at 2345, Do not administer for more than 5 days.losartan potassium 100 mg oral tablet (20 sources)Angiotensin 2 Receptor BlockerStart: 04-24-2024 End: 39-27-9403okka 1 tablet by mouth once dailyLosartan 100 mg tablet Discontinued 100 MG PO Daily 90 90 1 October 31, 2024 1:47pm May 20, 2025 10:52am Primary hypertension Essential (primary) hypertensiontake 1 tablet by mouth every twenty-four hoursLosartan Potassium 50 MG 1 tablet Orally Once a day for 90 days Activemagnesium oxide 400 mg oral tablet (14 sources)Start: 07-14-2022 End: 87-98-4588fjhd 1 tablet by mouth once dailyMagnesium Oxide 400 mg magnesium Tablet Discontinued 400 MG PO Daily July 13, 2022 11:00pm April 24, 2024 9:15ammeclizine hydrochloride 25 mg oral tablet (4 sources)AntiemeticStart: 11-28-2024 End: 70-88-2541pgem 1 tablet by mouth three times daily as needed for dizziness Meclizine 25 mg tablet Discontinued 25 MG PO Three times daily as needed for dizziness 30 10 0 November 28, 2024 12:00am September 03, 2025 12:05pm Vertigo Dizziness and giddinessmeloxicam 15 mg oral tablet (14 sources)Nonsteroidal Anti-inflammatory DrugStart: 07-14-2022 End: 71-51-5502ybix 1 tablet by mouth once dailyMeloxicam 15 mg Tablet Discontinued 15 MG PO Daily July 13, 2022 11:00pm April 24, 2024 9:15am Multiple Vitamins-Minerals (WOMENS 50+ MULTI VITAMIN) TABS (12 sources) End: 50-25-9163Tczzopsk Vitamins-Minerals (WOMENS 50+ MULTI VITAMIN) TABS Take by mouth 06/03/2025 Discontinued (LIST CLEANUP)Multiple Vitamins-Minerals (WOMENS 50+ MULTI VITAMIN) TABS Take by mouth Activeomeprazole 20 mg delayed release oral capsule (20 sources)Proton Pump InhibitorStart: 01-12-2018 End: 40-08-7290afaq 1 capsule by mouth once dailyOmeprazole 20 mg capsule,delayed release(DR/EC) Discontinued 20 MG PO Daily 90 90 1 October 31, 2024 1:47pm May 20, 2025 10:52am Gastroesophageal reflux disease Gastro- esophageal reflux disease without esophagitis gerdtake 1 tablet by mouth once dailyomeprazole 20 MG EC tablet Take 1 tablet by mouth daily Active Prenat.Vits,Noe,Uwy-Eykv-Zghkb ( Vitamin) Tablet (5 sources)Start: 01-12-2018 End: 20-17-1985upef 1 tablet by mouth once dailyPrenat.Vits,Noe,Kzu-Xrtz-Yttaw ( Vitamin) Tablet Discontinued 1 TAB PO Daily January 11, 2018 11:00pm July 14, 2022 6:15amStart: 01-12-2018 End: 74-90-1202yofs 1 tablet by mouth once dailyPrenat.Vits,Noe,Mcc-Vglb-Nqzyn ( Vitamin) Tablet Discontinued 1 TAB PO Daily January 12, 2018 12:00am July 14, 2022 7:15am1.17 ml romosozumab-aqqg 89.7 mg/ml prefilled syringe (20 sources)Start: 06-03-2025 End: 77-30-9042jrsvyi 1 dose by subcutaneous injection clzz430 mg, SubCUTAneous, ONCE, 1 dose, On Tue06/03/25 at 1015, Allow to sit at room temperature for at least 30 minutes before administration. Administer into the abdomen, thigh, or outer area of upper arm. Rotate injection sites; if the same injection site is chosen, do not inject into the same spot used for the first injection.Start: 06-03-2025 End: 73-66-4247ikdjor 1 dose by subcutaneous injection [id number] mg, SubCUTAneous, ONCE, 1 dose, On Tue06/03/25 at 1015, Allow to sit at room temperature for at least 30 minutes before administration. Administer into the abdomen, thigh, or outer area of upper arm. Rotate injection sites; if the same injection site is chosen, do not inject into the same spot used for the first injection.Start: 05-06-2025 End: 76-72-7107xuehvs 1 dose by subcutaneous injection dmhr804 mg, SubCUTAneous, ONCE, 1 dose, On Tue05/06/25 at 1015, Allow to sit at room temperature for at least 30 minutes before administration. Administer into the abdomen, thigh, or outer area of upper arm. Rotate injection sites; if the same injection site is chosen, do not inject into the same spot used for the first injection.Start: 05-06-2025 End: 90-01-6406rcovqj 1 dose by subcutaneous injection uktr160 mg, SubCUTAneous, ONCE, 1 dose, On Tue05/06/25 at 1015, Allow to sit at room temperature for at least 30 minutes before administration. Administer into the abdomen, thigh, or outer area of upper arm. Rotate injection sites; if the same injection site is chosen, do not inject into the same spot used for the first injection.Start: 04-08-2025 End: 82-86-9894bdonkh 1 dose by subcutaneous injection [id number] mg, SubCUTAneous, ONCE, 1 dose, On Tue04/08/25 at 1030, Allow to sit at room temperature for at least 30 minutes before administration. Administer into the abdomen, thigh, or outer area of upper arm. Rotate injection sites; if the same injection site is chosen, do not inject into the same spot used for the first injection.Start: 04-08-2025 End: 50-98-3507ytcntl 1 dose by subcutaneous injection [id number] mg, SubCUTAneous, ONCE, 1 dose, On Tue04/08/25 at 1030, Allow to sit at room temperature for at least 30 minutes before administration. Administer into the abdomen, thigh, or outer area of upper arm. Rotate injection sites; if the same injection site is chosen, do not inject into the same spot used for the first injection.Start: 03-05-2025 End: 13-03-2559xpsewi 1 dose by subcutaneous injection drcl312 mg, SubCUTAneous, ONCE, 1 dose, On Tue03/05/25 at 1015, Allow to sit at room temperature for at least 30 minutes before administration. Administer into the abdomen, thigh, or outer area of upper arm. Rotate injection sites; if the same injection site is chosen, do not inject into the same spot used for the first injection.Start: 03-05-2025 End: 94-12-5278jnrstk 1 dose by subcutaneous injection [id number] mg, SubCUTAneous, ONCE, 1 dose, On Tue03/05/25 at 1015, Allow to sit at room temperature for at least 30 minutes before administration. Administer into the abdomen, thigh, or outer area of upper arm. Rotate injection sites; if the same injection site is chosen, do not inject into the same spot used for the first injection.Start: 02-05-2025 End: 03-62-5145odljxs 1 dose by subcutaneous injection [id number] mg, SubCUTAneous, ONCE, 1 dose, On Tue02/05/25 at 1045, Allow to sit at room temperature for at least 30 minutes before administration. Administer into the abdomen, thigh, or outer area of upper arm. Rotate injection sites; if the same injection site is chosen, do not inject into the same spot used for the first injection.Start: 02-05-2025 End: 85-01-1226mcwkji 1 dose by subcutaneous injection ghuu761 mg, SubCUTAneous, ONCE, 1 dose, On Tue02/05/25 at 1045, Allow to sit at room temperature for at least 30 minutes before administration. Administer into the abdomen, thigh, or outer area of upper arm. Rotate injection sites; if the same injection site is chosen, do not inject into the same spot used for the first injection.Start: 01-08-2025 End: 92-36-4074bfblfu 1 dose by subcutaneous injection [id number] mg, SubCUTAneous, ONCE, 1 dose, On Tue01/08/25 at 1030, Allow to sit at room temperature for at least 30 minutes before administration. Administer into the abdomen, thigh, or outer area of upper arm. Rotate injection sites; if the same injection site is chosen, do not inject into the same spot used for the first injection.Start: 01-08-2025 End: 15-17-8848ekdcal 1 dose by subcutaneous injection isco726 mg, SubCUTAneous, ONCE, 1 dose, On Tue01/08/25 at 1030, Allow to sit at room temperature for at least 30 minutes before administration. Administer into the abdomen, thigh, or outer area of upper arm. Rotate injection sites; if the same injection site is chosen, do not inject into the same spot used for the first injection.Start: 12-11-2024 End: 09-94-3032mzofzt 1 dose by subcutaneous injection [id number] mg, SubCUTAneous, ONCE, 1 dose, On Tue12/11/24 at 1030, Allow to sit at room temperature for at least 30 minutes before administration. Administer into the abdomen, thigh, or outer area of upper arm. Rotate injection sites; if the same injection site is chosen, do not inject into the same spot used for the first injection.Start: 11-07-2024 End: 68-96-2425heucii 1 dose by subcutaneous injection tukh703 mg, SubCUTAneous, ONCE, 1 dose, On Tue11/07/24 at 1115, Allow to sit at room temperature for at least 30 minutes before administration. Administer into the abdomen, thigh, or outer area of upper arm. Rotate injection sites; if the same injection site is chosen, do not inject into the same spot used for the first injection.Start: 11-07-2024 End: 24-66-9751xyjffe 1 dose by subcutaneous injection [id number] mg, SubCUTAneous, ONCE, 1 dose, On Tue11/07/24 at 1115, Allow to sit at room temperature for at least 30 minutes before administration. Administer into the abdomen, thigh, or outer area of upper arm. Rotate injection sites; if the same injection site is chosen, do not inject into the same spot used for the first injection.Start: 10-31-2024 End: 72-41-3814Rvdemzmxpaf-Aqqg (Evenity) 210mg/2.34mL ( 105mg/1.17mLx2) syringe Discontinued 210 MG SUBCUT every month October 31, 2024 12:00am September 03, 2025 12:06pmStart: 02-86-4963Mkxkg: 87-51-1684Atfpldhtseq-Aqqg (Evenity) 210mg/2.34mL ( 105mg/1.17mLx2) syringe Active 210 MG SUBCUT every month October 31, 2024 1:00am Complies with drug therapyStart: 10-10-2024 End: 69-72-3456jtlpsk 1 dose by subcutaneous injection leao672 mg, SubCUTAneous, ONCE, 1 dose, On Tue10/10/24 at 1115, Allow to sit at room temperature for at least 30 minutes before administration. Administer into the abdomen, thigh, or outer area of upperarm. Rotate injection sites; if the same injection site is chosen, do not inject into the same spotused for the first injection.Start: 10-10-2024 End: 61-92-7578iqfmxo 1 dose by subcutaneous injection rpnu285 mg, SubCUTAneous, ONCE, 1 dose, On Tue10/10/24 at 1115, Allow to sit at room temperature for at least 30 minutes before administration. Administer into the abdomen, thigh, or outer area of upperarm. Rotate injection sites; if the same injection site is chosen, do not inject into the same spotused for the first injection.Start: 09-13-2024 End: 19-68-5644mzuxkj 1 dose by subcutaneous injection emkl592 mg, SubCUTAneous, ONCE, 1 dose, On Aixa 09/13/24 at 1115, Allow to sit at room temperature for at least 30 minutes before administration. Administer into the abdomen, thigh, or outer area of upperarm. Rotate injection sites; if the same injection site is chosen, do not inject into the same spotused for the first injection.Start: 08-16-2024 End: 62-92-3008zovfbs 1 dose by subcutaneous injection [id number] mg, SubCUTAneous, ONCE, 1 dose, On Aixa 08/16/24 at 1115, Allow to sit at room temperature for at least 30 minutes before administration. Administer into the abdomen, thigh, or outer area of upperarm. Rotate injection sites; if the same injection site is chosen, do not inject into the same spotused for the first injection.Start: 08-16-2024 End: 45-72-0770uitdyl 1 dose by subcutaneous injection ondu944 mg, SubCUTAneous, ONCE, 1 dose, On Aixa 08/16/24 at 1115, Allow to sit at room temperature for at least 30 minutes before administration. Administer into the abdomen, thigh, or outer area of upperarm. Rotate injection sites; if the same injection site is chosen, do not inject into the same spotused for the first injection. sulfamethoxazole 800 mg / trimethoprim 160 mg oral tablet (10 sources)Dihydrofolate Reductase Inhibitor Antibacterial, Sulfonamide AntimicrobialStart: 04-03-2018 End: 44-43-9808fabg 1 tablet by mouth twice dailySulfamethoxazole-Trimethoprim (Bactrim Ds) 800-160 mg tablet Discontinued 1 TAB PO Twice daily April 02, 2018 11:00pm July 14, 2022 6:15amStart: 01-19-2018 End: 50-21-5024zwna 1 tablet by mouth twice dailySulfamethoxazole-Trimethoprim (Bactrim Ds) 800-160 mg tablet Discontinued 1 TAB PO Twice daily 2017 11:00pm March 08, 2018 8:36amtriamcinolone acetonide 1 mg/ml topical cream (20 sources)CorticosteroidStart: 11-28-2024 End: 77-63-9868Esgkqcgmcfgou Acetonide 0.1 % cream Discontinued 1 APPLIC TOPICAL Twice daily 30 7 0 November 28, 2024 12:00am September 03, 2025 12:06pm Osteoporosis Rash Age-related osteoporosis without current pathological fracture Rash and other nonspecific skin eruptionStart: 41-51-1469Irevedy -40 mg Sep, 40 mgvarenicline 1 mg oral tablet (4 sources)Partial Cholinergic Nicotinic AgonistStart: 07-02-2024 End: 03-02-2836lcpp 1 tablet by mouth onceVarenicline Tartrate (Chantix Starting Month Box) 0.5 mg (11)- 1 mg (42) tablets,dose pack Discontinued 0 PO per package directions 53 0 July 01, 2024 11:00pm October 31, 2024 1:28pm Nicotine dependence Nicotine dependence, unspecified, uncomplicated PO PER PKG DIRvitamin b12 1 mg/ml injectable solution (20 sources)Vitamin B50Regay: 05-21-2025 End: 66-02-9990qtqvrb 1000 ug by intramuscular injection every month Cyanocobalamin (Vitamin B-12) 1,000 mcg/mL solution Discontinued 1000 MCG IM every month 3 90 May 21, 2025 3:17pm September 03, 2025 12:04pm Cobalamin deficiency Deficiency of other specified Bgroup vitaminsStart: 01-12-2018 End: 64-25-6686ahdsmv 1000 ug by intramuscular injection every month Cyanocobalamin (Vitamin B-12) 1,000 mcg/mL solution Discontinued 1000 MCG IM every month 1 30 May 11, 2024 10:58am October 31, 2024 1:48pm Cobalamin deficiency Deficiency of other specified B group vitaminscyanocobalamin 1000 MCG/ML injection Inject 1 mL into the muscle every 30 days Activecyanocobalamin 1000 MCG/ML injection Inject 1 mL into the muscle every 30 days Active cyanocobalamin 1000 MCG/ML injection Inject 1,000 mcg into the muscle once ActiveCyanocobalamin 1000 MCG/ML 1 ml Injection monthly for 90 day(s) Active Problems Active Problems Problem ClassificationProblemDateDocumented DateEpisodic/ChronicAbdominal pain (11 sources)Epigastric pain; Translations: [Epigastric pain]EpisodicAnxiety disorders (4 sources)Mixed anxiety and depressive disorder; Translations: [Other specified anxiety disorders]74-36-3729NjoxuqzDnqskn (20 sources)Mild intermittent asthma; Translations: [Mild intermittent asthma, uncomplicated]Onset: 04-30-2022 Resolved: 89-48-2550KxlbuelNgstkoa obstructive pulmonary disease and bronchiectasis (20 sources)Acute exacerbation of chronic obstructive airways disease; Translations: [Chronic obstructive pulmonary disease with (acute) exacerbation] ChronicChronic obstructive pulmonary disease and bronchiectasis (1 source)Bronchitis, not specified as acute or chronicEpisodicConditions associated with dizziness or vertigo (4 sources)Vertigo; Translations: [Dizziness and giddiness]59-51-6218Vdtfefzq Disorders of lipid metabolism (7 sources)Hyperlipidemia; Translations: [Hyperlipidemia, unspecified]05-11-2024 ChronicEsophageal disorders (20 sources)Gastro-esophageal reflux disease with esophagitis; Translations: [Gastro-esophageal reflux disease with esophagitis]Onset: 04-30-2022 Resolved: 71-96-4485XibunjdHftyumlnb hypertension (20 sources)Essential hypertension; Translations: [Essential (primary) hypertension]Onset: 04-30-2022 Resolved: 24-77-1154KswoqknYwwbtmcpmtqfxl ulcer (except hemorrhage) (11 sources)Gastrojejunal ulcer; Translations: [Gastrojejunal ulcer, unspecified as acute or chronic, without hemorrhage or perforation]ChronicGastrointestinal hemorrhage (11 sources)Melena; Translations: [Melena]EpisodicGenitourinary symptoms and ill-defined conditions (2 sources)Dysuria; Translations: [Dysuria]Onset: 07-12-2022 Resolved: 68-97-6023ZccoeoulKqqorhllaulhe and screening for infectious disease (1 source)Encounter for immunizationEpisodicMenopausal disorders (11 sources)Menopause ovarian failure; Translations: [Other primary ovarian failure]ChronicNausea and vomiting (11 sources)Nausea; Translations: [Nausea]EpisodicNutritional deficiencies (20 sources)Vitamin D deficiency; Translations: [Vitamin D deficiency, unspecified]Onset: 04-30-2022 Resolved: 10-71-3530GdaxypbAijtcevfrge deficiencies (20 sources)Cobalamin deficiency; Translations: [Deficiency of other specified B group vitamins]Onset: 04-30-2022 Resolved: 28-54-0810BkbamoflXnsm wounds of head; neck; and trunk (1 source)Facial laceration ; Translations: [Laceration without foreign body of other part of head, initial encounter]EpisodicOsteoporosis (20 sources)Senile osteoporosis; Translations: [Age-related osteoporosis without current pathological fracture]Onset: 493027-10-3781ZzhnqgsSgwgm acquired deformities (11 sources)Contracture of joint of finger; Translations: [Contracture, right hand]ChronicOther acquired deformities (20 sources)Spondylolisthesis L5/S1 level; Translations: [Spondylolisthesis, lumbosacral region]EpisodicOther aftercare (5 sources)Patient encounter status; Translations: [Other retirement (current) drug therapy]12-34-1482YsvcggprSakmn aftercare (5 sources)Long-term current use of drug therapy; Translations: [Other technician terminal and repeater (current) drug therapy]48-90-6488MzjdogjfInfin aftercare (1 source)Other retirement (current) drug therapy; Translations: [Other technician terminal and repeater (current) drug therapy]Onset: 90-26-9003EdqurfdjHhcgr bone disease and musculoskeletal deformities (2 sources)Osteopenia; Translations: [Other specified disorders of bone density and structure, unspecified site]73-59-9293RxemhrhwUjdvn circulatory disease (1 source)Elevated blood-pressure reading without diagnosis of hypertension; Translations: [Elevated blood-pressure reading, without diagnosis of hypertension]EpisodicOther circulatory disease (1 source)Other specified symptoms and signs involving the circulatory and respiratory systemsEpisodicOther connective tissue disease (11 sources)Rupture of tendon of finger; Translations: [Spontaneous rupture of other tendons, right hand]EpisodicOther connective tissue disease (1 source)Pain in left lower limb; Translations: [Pain in left leg]12-09-2024 EpisodicOther connective tissue disease (1 source)Pain of left hand; Translations: [Pain in left hand]27-24-8387Poaewdyr Other gastrointestinal disorders (20 sources)History of bypass of stomach; Translations: [Bariatric surgery status]EpisodicOther gastrointestinal disorders (2 sources)Bariatric surgery statusOnset: 04-30-2022 Resolved: 46-13-9796DygrfzavBusog inflammatory condition of skin (15 sources)Rosacea; Translations: [Rosacea, unspecified]06-82-6442XkgocdePtusc inflammatory condition of skin (1 source)Rosacea, unspecifiedOnset: 04-30-2022 Resolved: 53-05-3884VqypjasOhnru lower respiratory disease (1 source)Shortness of breathEpisodicOther nervous system disorders (18 sources)Chronic pain; Translations: [Other chronic pain]ChronicOther nervous system disorders (1 source)Other chronic painOnset: 05-13-2022 Resolved: 91-02-4203KsfgpajTustn nervous system disorders (11 sources)Paresthesia of lower extremity; Translations: [Paresthesia of skin] EpisodicOther non-traumatic joint disorders (1 source)Acute ankle pain; Translations: [Pain in right ankle and joints of right foot]EpisodicOther screening for suspected conditions (not mental disorders or infectious disease) (20 sources)Mammography abnormal; Translations: [Other abnormal and inconclusive findings on diagnostic imagingof breast]Onset: 04-30-2022 Resolved: 82-84-2969RaqaxjheCsxjt skin disorders (4 sources)Eruption; Translations: [Rash and other nonspecific skin eruption] 66-01-6479OnjljrbzIbebd upper respiratory disease (1 source)Nasal congestionEpisodicOther upper respiratory infections (4 sources)Acute maxillary sinusitis; Translations: [Acute maxillary sinusitis, unspecified]52-28-2743MdzbbeekRifygapv codes; unclassified (2 sources)Asymptomatic menopausal state; Translations: [Asymptomatic menopausal state]Onset: 04-30-2022 Resolved: 80-36-6605UajnphpwUmsujzuc codes; unclassified (6 sources)Postmenopausal state; Translations: [Asymptomatic menopausal state] 55-62-2369ZpvuivaiDkqcuerc codes; unclassified (7 sources)Body mass index 20-24 - normal; Translations: [Body mass index (BMI) 20.0-20.9, adult]93-15-4477KkdaxuilRwtavuvt codes; unclassified (3 sources)Menopause present; Translations: [Asymptomatic menopausal state] 67-70-6881PhlgtfxaGwmwhjixhez; intervertebral disc disorders; other back problems (20 sources)Degeneration of lumbar intervertebral disc; Translations: [Other intervertebral disc degeneration, lumbar region]ChronicSpondylosis; intervertebral disc disorders; other back problems (1 source)Pain in thoracic spineEpisodicSubstance-related disorders (20 sources)Tobacco user; Translations: [Nicotine dependence, unspecified, uncomplicated]Onset: 04-30-2022 Resolved: 09-43-8511SjvlayyOwplvutylhcq (1 source)Long-term current use of drug -71-6456Kubvmqq tract infections (5 sources)Acute cystitis with hematuria; Translations: [Urinary tract infectious disease]Onset: 07-12-2022 Resolved: 01-06-9564Vyiircnj Past or Other Problems Problem ClassificationProblemDateDocumented DateEpisodic/ChronicOther acquired deformities (2 sources)Spondylolisthesis, lumbosacral regionOnset: 04-30-2022 Resolved: 79-88-2969CubbwmgbGqwyt bone disease and musculoskeletal deformities (1 source)Other specified disorders of bone density and structure, multiple sitesOnset: 04-30-2022 Resolved: 43-14-4765PkwebastTeqyc connective tissue disease (1 source)Pain in left leg; Translations: [Pain in left leg]Onset: 12-09-2024 EpisodicOther connective tissue disease (1 source)Pain in left hand; Translations: [Pain in left hand]Onset: 12-09-2024 EpisodicSuperficial injury; contusion (4 sources)Contusion of right hand, initial encounter; Translations: [Contusion of right knee]Onset: 247306-94-0022UrkplaebGihvctdskaje (1 source)Low back pain, unspecified M54.50Onset: 05-13-2022 Resolved: 08-68-2327Yfykbafwcjpb (1 source)Acute cough R05.1 Results Test NameValueInterpretationReference RangeFacilityLaboratory - Chemistry and Chemistry - challengeOrdered By: Yumiko Morrlel on 10-43-4290Kficgctkm Ql (U)NegativeAshtabula General HospitalGlucose (U) [Mass/Vol]Negative [facility] HospitalKetones Ql (U)NegativeAshtabula General HospitalpH (U)5.0 [pH][facility] Hospitalpecific gravity (U) [Rel density]1.010As[facility]ula [facility] HospitalUrobilinogen (U) [Mass/Vol]0.2 mg/dLAshtabula General HospitalLaboratory - Specimen informationOrdered By: Yumiko Morrell on 36-83-2623Ohniqumhai (U)Cloudy [facility] HospitalColor (U)YellowAshtabula General HospitalLaboratory - UrinalysisOrdered By: Yumiko Morrell on 2025 Leukocyte esterase Test strip Ql (U)ModerateAshtabula General Hospital Nitrite Ql (U)NegativeAshtabula General HospitalProtein Ql (U)15[facility] HospitalNo Panel InformationOrdered By: Yumiko Morrell on 52-43-7447Uratj Occult BloodLargeAshtabula General HospitalUrine Culture on 77-60-7984Udswqjam identified Cx Nom (U)25,000 colonies/ml mixed bacterial skin contaminants including mixed gram negative bacilli - 2 Days PERFORMED BY: [place] [address] PATHOLOGIST CRYPTOLOGIC SUPERVISOR GEOVANY GUERRERO M.D.NormalAdventhealth Wesley Chapel Physician GroupComment on above: Performed By: #### CU[place] #### [place] [address] USAUrine cultureOrdered By: Yumiko Morrell on 2025 Bacteria identified Cx Nom (U)bacilli - 2 DaysAshtabula General Hospital DEXA BONE DENSITY AXIAL SKELETONon 96-37-1433PQTN BONE DENSITY AXIAL SKELETON EXAMINATION: BONE DENSITOMETRY 07/02/2025 10:26 am TECHNIQUE: A bone density dual x-ray absorptiometry (DXA) scan was performed of the lumbar spine and left hip on a Kato system. COMPARISON: 06/27/2024. HISTORY: ORDERING SYSTEM PROVIDED [...] risk is performed using the [employer] FRAX calculator based on patient-reported risk factors. Major osteoporotic fracture: 4.6% Hip fracture: 1.5% Other situations known to alter the reliability of the FRAX score should be considered when making treatment decisions, including chronic glucocorticoid use and past treatments. Further guidance on treatment can be found at the National Osteoporosis Foundation's website bonesource.org. IMPRESSION: Osteopenia [...] have additional risk factors. Template code: RPnmNSD_DX_dxa Interpreted by: Buzz Henry MD Signed by: Buzz Henry MD 07/04/25 Final resultNormalMercy Audubon HospitalDXA Skeletal system.axial Views for bone densityon 24-78-7692Hlyihwandw by WHO criteria. RECOMMENDATIONS: 1. All patients [...] have additional risk factors. Template code: RPnmNSD_DX_dxa [facility] CONSOLIDATEDEXAMINATION: BONE DENSITOMETRY 07/02/2025 10:26 am TECHNIQUE: A bone density dual x-ray absorptiometry (DXA) scan was performed of the lumbar spine and left hip on a Kato system. COMPARISON: 06/27/2024. HISTORY: ORDERING SYSTEM PROVIDED [...] 10-year fracture risk is performed using the [facility] FRAX calculator based on patient-reported risk factors. Major osteoporotic fracture: 4.6% Hip fracture: 1.5% Other situations known to alter the reliability of the FRAX score should be considered when making treatment decisions, including chronic glucocorticoid use and past treatments. Further guidance on treatment can be found at the National Osteoporosis Foundation's website bonesource.org. [facility] Buzz Johnson MD - 07/04/2025 EXAMINATION: BONE DENSITOMETRY 07/02/2025 10:26 am TECHNIQUE: A bone density dual x-ray absorptiometry (DXA) scan was performed of the lumbar spine and left hip on a Kato system. COMPARISON: 06/27/2024. HISTORY: ORDERING SYSTEM PROVIDED [...] 10-year fracture risk is performed using the [facility] FRAX calculator based on patient-reported risk factors. Major osteoporotic fracture: 4.6% Hip fracture: 1.5% Other situations known to alter the reliability of the FRAX score should be considered when making treatment decisions, including chronic glucocorticoid use and past treatments. Further guidance on treatment can be found at the National Osteoporosis Foundation's website bonesource.org. IMPRESSION: Osteopenia [...] have additional risk factors. Template code: RPnmNSD_DX_dxa [facility] Skeletal system.axial Views for bone densityOrdered By: Buzz Henry on 69-96-5508LukPioneer Community Hospital of Patrick Work Phone: DXA Skeletal system.axial Views for bone densityon 11-92-1247Fcptnwwje Study observation (narrative)[facility] CONNOR DIGITAL SCREEN BILATERALon 77-22-9179AXW CONNOR DIGITAL SCREEN BILATERAL EXAMINATION: SCREENING DIGITAL BILATERAL MAMMOGRAM WITH TOMOSYNTHESIS, 06/27/2024 TECHNIQUE: Screening mammography was performed with tomosynthesis including MLO and CC views of the bilateral breasts. Computer aided detection was used for the interpretation of this exam. COMPARISON: June 08, 2023 and May 31, 2022 HISTORY: Screening. FINDINGS: There are scattered areas of fibroglandular density. There is no dominant mass, architectural distortion or concerning grouping of microcalcification in either breast. IMPRESSION: No mammographic evidence of malignancy BIRADS: BIRADS - CATEGORY 1 Negative. Normal interval follow-up is recommended in 12 months. OVERALL ASSESSMENT - NEGATIVE A letter of notification will be sent to the patient regarding the results. The [employer] recommends annual mammograms for women 40 years and older. Performing Facility: [place] [address] Interpreted by: Yovany Malik DO Signed by: Yovany Malik DO 07/13/24 Edited Result - FINALNormalMerThe Institute of Living Skeletal system.axial Views for bone densityon 44-99-8171Ajgmfabjoe by WHO criteria. RECOMMENDATIONS: 1. All patients [...] have additional risk factors. Template code: RPnmNSD_DX_dxa [facility] CONSOLIDATEDEXAMINATION: BONE DENSITOMETRY 06/27/2024 9:20 am TECHNIQUE: A bone density dual x-ray absorptiometry (DXA) scan was performed of the lumbar spine and left hip on a Kato system. COMPARISON: None. HISTORY: ORDERING SYSTEM PROVIDED HISTORY: Postmenopausal state Gender: F Age: 73 y/o FINDINGS: LUMBAR SPINE: L1-L4 BMD: 1.366 g/cm2 T-score: 1.5 Z-score: 2.5 LEFT TOTAL HIP: BMD: 0.710 g/cm2 T-score: -2.4 Z-score: -1.8 LEFT FEMORAL NECK: BMD: 0.806 g/cm2 T-score: -1.7 Z-score: -0.9 FRAX 10-YEAR PROBABILITY OF FRACTURE: 10-year fracture risk is performed using the [facility] FRAX calculator based on patient-reported risk factors. Major osteoporotic fracture: 4.4% Hip fracture: 1.3% Other situations known to alter the reliability of the FRAX score should be considered when making treatment decisions, including chronic glucocorticoid use and past treatments. Further guidance on treatment can be found at the National Osteoporosis Foundation's website bonesource.org. Yovany Rosales DO - 06/27/2024 EXAMINATION: BONE DENSITOMETRY 06/27/2024 9:20 am TECHNIQUE: A bone density dual x-ray absorptiometry (DXA) scan was performed of the lumbar spine and left hip on a Kato system. COMPARISON: None. HISTORY: ORDERING SYSTEM PROVIDED HISTORY: Postmenopausal state Gender: F Age: 73 y/o FINDINGS: LUMBAR SPINE: L1-L4 BMD: 1.366 g/cm2 T-score: 1.5 Z-score: 2.5 LEFT TOTAL HIP: BMD: 0.710 g/cm2 T-score: -2.4 Z-score: -1.8 LEFT FEMORAL NECK: BMD: 0.806 g/cm2 T-score: -1.7 Z-score: -0.9 FRAX 10-YEAR PROBABILITY OF FRACTURE: 10-year fracture risk is performed using the [facility] FRAX calculator based on patient-reported risk factors. Major osteoporotic fracture: 4.4% Hip fracture: 1.3% Other situations known to alter the reliability of the FRAX score should be considered when making treatment decisions, including chronic glucocorticoid use and past treatments. Further guidance on treatment can be found at the National Osteoporosis Foundation's website bonesource.org. IMPRESSION: Osteopenia [...] have additional risk factors. Template code: RPnmNSD_DX_dxa [facility]ITALSRadiology Study observation (narrative)[facility] Skeletal system.axial Views for bone densityOrdered By: Yovany Malik on 38-80-5720[facility] [employer] Work Phone: Coding Summaryon 25-21-6453Pggadf SummaryMLBase 64 DejcbhzxPWr7qBx+PGhlYWQ+[id number]DcZO1cfQXg ZXJu [file] c2U (more content not included)...[facility] HospitalED Clinical Summaryon [id number] Clinical [facility] - Emergency Department [address] [place] [address] [id number] ED Clinical Summary PERSON INFORMATION Name: MELANIE BRANDT Age: 72 Years Sex: FEMALE : 1950 MRN: Acct#: Visit Reason: Back pain; BACK PAIN Arrival: 07/02/2023 18:54:32 Discharge: 07/02/2023 22:47:00 LOS: 000 03:53 Check In: 07/02/2023 18:54:32 Checkout:07/02/2023 22:47:00 Address: [address] [place] [id number] PCP: Yumiko Morrell CNP PROVIDER INFORMATION Provider Role Assigned Unassigned Brie Isabelstanley Jefferson PA-C ED PA 07/02/2023 19:07:09 Zehra Kay [employer] OFFICER Nurse 07/02/2023 19:36:28 07/02/2023 19:40:17 Zehra Kay [employer]IOR [employer] OFFICER Nurse 07/02/2023 19:40:19 VITALS INFORMATION Vital Sign Triage Latest Temperature Tympanic Temperature Temporal Artery Pulse Rate 74 bpm 74 bpm O2 Sat 98 % 98 % Respiratory Rate 16 br/min 18 br/min Blood Pressure /89 mmHg /89 mmHg MEDICAL INFORMATION Medications Given: Medication Dose Route albuterol-ipratropium (albuterol-ipratropium 2.5 mg-0.5 mg/3 mL inhalation solution) 3 mL NEB dexAMETHasone 10 mg IV Push ketorolac 15 mg IV Push Allergy Information: No Known Medication Allergies PHYSICIAN DOCUMENTATION DISCHARGE INFORMATION: Discharge Disposition: Home Discharge Location: Home PATIENT EDUCATION INFORMATION Instructions: Cough, Adult, Eifa-[place]-Kadx Follow-Up: With: Address: When: Yumiko Morrell CNP [address] [place], [place] [id number] Within 3 to 5 days DIAGNOSIS: 1:COPD exacerbation; 2:Muscle spasm of back; 3:Hypertension Patient Understands: Yes - Patient/family/caregiver verbalizes understanding of instructions given Comment:[facility] HospitalED Patient Summary [id number] Patient Summary [facility] - Emergency Department [address] [place] [id number] PATIENT DISCHARGE INSTRUCTIONS Patient Information Name: MELANIE BRANDT Age: 72 Years Date of : 1950 Reason For Visit: Back pain; BACK PAIN Arrival Time: 07/02/2023 18:54:32 Primary Care Physician: Yumiko Morrell CNP Attending Physician: Kishor Pritchett DO Comment: Visit Diagnosis: Diagnoses This Visit Back pain ([id number]) COPD exacerbation (J44.1) Hypertension (I10) Muscle spasm of back (M62.830) The Pharmacy at [facility] is open Tuesday through Tuesday from 9A to 6P and Tuesday and Tuesday from 9A to 5P Prescription Information: If you have been given a prescription for narcotics, seek immediate medical attention if you have any difficulty breathing or any sudden status changes such as confusion andsleepiness. If you or anyone you know is experiencing suicidal thoughts, mental health, alcohol and/or drug addiction problems; contact the [facility] 16/05 Crisis Hotline -Text 4XPYM zc [phone]. If you received any narcotics, sedation, or any other medication that causes drowsiness for the next 24 hours, unless otherwise directed: ? Do not drive a car. ? Do not operate machinery such as power tools, lawn mowers, drills, sewing machines, or stoves ? Avoid alcoholic beverages and drugs for allergies, nerves, or sleep ? Do not make important personal or business decisions or sign any legal documents With: Address: When: Yumiko Morrell CNP [address] [place] [id number] Within 3 to 5 days Medication Information: The exam and treatment you received today in the [facility] Emergency Department were for an urgent problem and are not intended as complete care. It is important for you to follow up with a doctor, nurse practitioner, or physician?s investment sales assistant for ongoing care. If your symptoms become worse or you donot improve as expected and you are unable to reach your usual health care provider, you should return to the Emergency Department, we are available 24 hours a day. For those patients who have received Radiology results, the interpretation of your X-ray as given to you by our Emergency Department physician is only a preliminary report. The Radiologist will review your films and if there is a change in the diagnosis you will be notified by phone. Please make sure you have provided a working phone number so we can reach you if necessary. In the event that you had a lab culture while you were a patient in the Emergency Department, you will be notified by phone if there is a need to change your antibiotic. Please make sure you have provided a working phone number so we can reach you if necessary. [facility] [facility] has provided you with a complete list of medications post discharge. Please inform your campaign developer/provider of your visit and for further instruction on these medications. Any specific questions regarding your chronic medications and dosages should be discussed with your primary care physician(s) and/or pharmacist. New Medications [id number], [address], [place] [id number], [phone] albuterol (Ventolin HFA 90 mcg/inh inhalation aerosol) 1 puff(s) Inhalation Every 4 hours as neededfor wheezing for 7 Days. please give a spacer use with spacer chamber. Refills: 0. azithromycin (azithromycin 500 mg oral tablet) 1 tab(s) Oral every day for 5 Days. Refills: 0. orphenadrine (orphenadrine 100 mg oral tablet, extended release) 1 tab(s) Oral 2 times a day for 7 Days. Refills: 0. predniSONE (predniSONE 20 mg oral tablet) 1 tab(s) Oral every day for 7 Days. Refills: 0. Additional medications on your home medication list not specifically addressed. Please contact the ordering physician if you have questions about these medications. losartan (losartan 100 mg oral tablet) 1 tab(s) Oral every day. omeprazole (omeprazole 20 mg oral delayed release capsule) 1 cap(s) Oral every day. Visit Information Allergies: Substance Reaction Symptoms Type Comments No Known Medication Allergies Drug Vital Signs: Vitals and Measurements this Visit (last charted value for your 07/02/2023 visit) Vital Signs This Visit Temperature Oral: 37.1 DegC Peripheral Pulse Rate: 81 bpm Heart Rate Monitored: 74 bpm Respiratory Rate: 20 br/min Systolic Blood Pressure: 187 mmHg Diastolic Blood Pressure: 89 mmHg SpO2: 98 % Oxygen Therapy: Room air Measurements This Visit Height/Length Dosin.880 cm Height/Length Estimated: 182.880 cm Weight Dosin.950 kg Weight Estimated: 68.950 kg Problems List: Problem Onset Comments COPD with emphysema Hypertension Patient Education Cough, Adult A cough helps to clear your throat and lungs. A cough may be a sign of an illness or another medical condition. (more content not included)...[facility].Auto Diff 1on 07-02-2023 Auto [place] %7 %98 [address] StreetComment on above:Performed By: #### [id number], 1646054, 78330193, 3750978909, [id number], [id number] #### [facility] (DEFAULT) [address] [place] [address] 67152Priv Abs#0.1 w91Dehiza8.0-0.2Magruder HospitalComment on above:Performed By: #### [id number], 6092989, 54404915, 0830311184, 6554996711, [id number] #### [facility] (DEFAULT) [address] [place] [address] 01439Alkqoiqtm/100 WBC (Bld)0.6 %Normal0.2-2.0[facility] Comment on above:Performed By: #### [id number], 5395101, 72949919, 0359689788, 1618034296, [id number] #### [facility] (DEFAULT) [address] [place] [address] 49413Lbt Abs#0.1 k16Dpblgo2.0-0.4Magrfostoria city hospital HospitalComment on above:Performed By: #### [id number], 1263067, 73654148, 7710417181, 0767795409, [id number] #### [facility] (DEFAULT) [address] [place] [address] 60795Iuiglwpgkwy/100 WBC (Bld)1.1 %Normal0.9-4.0[facility] HospitalComment on above:Performed By: #### [id number], 2680084, 56918786, 2230639831, 6183055807, [id number] #### [facility] (DEFAULT) [address] [place] [address] 19926Xgqzs Abs#2.6 h25Fppbai4.3-2.9[facility]rfostoria city hospital HospitalComment on above:Performed By: #### [id number], 4970229, 16485503, 4097437578, 3327599837, 6864090982 #### [facility] (DEFAULT) [address] [place] [address] 42033Dfypybfvtla/100 WBC (Bld)32 %Dcbzua28-71[facility] Comment on above:Performed By: #### [id number], 9847137, 95360921, 1419668382, 9746687523, 8367464888 #### [facility] (DEFAULT) [address] [place] [address] 68734Yngg Abs#0.6 v82Lpbadr9.0-0.8[facility] HospitalComment on above:Performed By: #### [id number], 3475964, 35466234, 6042933055, 9393127814, [id number] #### [facility] (DEFAULT) [address] [place] [address] 13996Gkrm Abs#4.8 u31Ridohn3.5-9.2[facility] HospitalComment on above:Performed By: #### [id number], 9947468, 58747331, 2363916763, 9103875388, [id number] #### [facility] (DEFAULT) [address] [place] [address] 46906Vgctvfaingh/100 WBC (Bld)60 %Pjqqli16-55Ivltjnpj Hospital Comment on above:Performed By: #### [id number], 7258473, 76711588, 2707703937, 5703720927, 6198962921 #### [facility] (DEFAULT) [address] [place] [address] 08424WAA w/ Auto Diffon 87-28-7222Fulznbdtuhi distribution width (RBC) [Ratio]14.2 %Uavkps57.5-15.0[facility] Medical CenterComment on above: Performed By: #### [id number], 8222373, 96159424, 0248270647, 5740352002, [id number] #### [facility] (DEFAULT) [address] [place] [address] 67665Sqjzhdjhll (Bld) [Volume fraction]41.6 %High33.7-40.4 [facility] HospitalComment on above:Performed By: #### [id number], 7581942, 96074526, 5586454667, 6417552363, 4578008878 #### [facility] (DEFAULT) [address] [place] [address] 57916Hobelsvvkm (Bld) [Mass/Vol]13.7 g/eWAcjgwz54.3-15.9 [facility] CenterComment on above:Performed By: #### [id number], 1670867, 97655019, 6512854386, 5931032086, [id number] #### [facility] (DEFAULT) [address] [place], [place] [address]Man Diff?AutoInvalid Interpretation CodeMain Campus Medical Center Comment on above:Performed By: #### [id number], 6538986, 07512325, 2092792708, , [id number] #### [facility] (DEFAULT) [address] [place] [address] 50533CAL (RBC) [Entitic mass]31 liStalbf16-68Ypucdgrm Hospital Comment on above:Performed By: #### [id number], 9556380, 37167829, 2633499810, 6257224351, 8507526049 #### [facility] (DEFAULT) [address] [place] [address] 20366QRPQ (RBC) [Mass/Vol]33 g/dHIllfje70-08Lkrgckwo Hospital Comment on above:Performed By: #### [id number], 6733929, 06931730, 9984108638, 8469341828, 9024692071 #### [facility] (DEFAULT) [address] [place] [address] 32047ZEC (RBC) [Entitic vol]95 dAYxyauh84-360Bpvufxsr Hospital Comment on above:Performed By: #### [id number], 3416730, 48832828, 4129646553, 7666393105, 1028777114 #### [facility] (DEFAULT) [address] [place] [address] 80719Hrsvqdin429 v98Msudhp866-301Vhxazvxb HospitalComment on above:Performed By: #### [id number], 3912194, 69514047, 3621352686, 9272078917, 0617033232 #### [facility] (DEFAULT) [address] [place] [address] 55654Xbrscndf mean volume (Bld) [Entitic vol]9.0 fLNormal 6.3-10.2[facility] HospitalComment on above:Performed By: #### [id number], 1401555, 87770948, 1008821462, 7826659901, 4660998711 #### [facility] (DEFAULT) [address] [place] [address] 28305HQT1.39 z36Ljlsvw3.70-5.30[facility] HospitalComment on above:Performed By: #### 0116945994, 5465106, 03833917, 6448936119, 0166441245, 4367467852 #### [facility] (DEFAULT) [address] [place] [address] 04463TLQ1.1 f75Hnhlny3.5-10.5[facility] HospitalComment on above: Performed By: #### [id number], 7164178, 24419177, 7448689442, 2600934504, 4718561020 #### [facility] (DEFAULT) [address] [place] [address] 43738KBL Standardon 86-07-9147wFYZ Non AA40 mL/min/1.73m2 Invalid Interpretation CodeMain Campus Medical CenterComment on above:Performed By: #### [id number], 5849693, 74897382, 7039922213, 1103282978, 9469850907 #### [facility] (DEFAULT) [address] [place] [address] 07271dLOG AA48 mL/min/1.16b6Wjgjjut Interpretation White HospitalComment on above:Performed By: #### 5128401775, 8512471, 38452819, 3871213252, 2846431509, 2845046850 #### [facility] (DEFAULT) [address] [place] [address] 51192Khbdbir [Mass/Vol]4.2 g/dLNormal3.5-5.0[facility] Comment on above:Performed By: #### 4549128549, 2156562, 59062694, 1171711262, 6510280933, 2770154261 #### [facility] (DEFAULT) [address] [place] [address] 41895Hhxnpjf/Globulin [Mass ratio]1.2 {ratio}Low1.4-2.6[facility] HospitalComment on above:Performed By: #### 5789131556, 8149655, 68542476, 6277538881, 5278791910, 0473974400 #### [facility] (DEFAULT) [address] [place] [address] 00731Kug Phos50 IU/YXpyelo99-87Rotmimpx HospitalComment on above:Performed By: #### [id number], 1008256, 17054235, 2971619838, 3394480725, 6224232583 #### [facility] (DEFAULT) [address] [place] [address] 98568UWF [Catalytic activity/Vol]16.0 U/ERuchlq82.0-54.0 [facility] HospitalComment on above:Performed By: #### [id number], 4428051, 76977929, 3968503723, 9823776896, 5819231945 #### [facility] (DEFAULT) [address] [place] [address] 96944Ympvx gap [Moles/Vol]10.0 mmol/LNormal5.0-19.0[facility] HospitalComment on above:Performed By: #### 0869503900, 0723829, 73768946, 0036670362, 7733921884, 5400066021 #### [facility] (DEFAULT) [address] [place] [address] 65410GAV [Catalytic activity/Vol]26 U/PHyltgx24-21Vwivglga HospitalComment on above:Performed By: #### 0348550290, 1273706, 85117602, 2642549254, 0882086191, 6770911174 #### [facility] (DEFAULT) [address] [place] [address] 65116Hryk Total0.5 mg/dLNormal0.3-1.2[facility] HospitalComment on above:Performed By: #### 2132003990, 0620635, 29647087, 2389951334, 1838608452, 8267252974 #### [facility] (DEFAULT) [address] [place] [address] 08126Onipsxx [Mass/Vol]9.0 mg/dLNormal8.9-10.3[facility] Comment on above:Performed By: #### 1821069286, 5247340, 37512846, 1319505109, 9151372468, 2688662368 #### [facility] (DEFAULT) [address] [place] [address] 88214Qoddgayz [Moles/Vol]107 mmol/EVnfsce542-393Jodbbixv HospitalComment on above:Performed By: #### 3792137062, 8297078, 49314032, 4499838176, 6729362470, 9300688245 #### [facility] (DEFAULT) [address] [place] [address] 32250KP1 [Moles/Vol]22 mmol/LPrcble20-73Jwwnvudt Hospital Comment on above:Performed By: #### 0365398817, 5834657, 18455053, 0882287880, 6776338495, 7530010015 #### [facility] (DEFAULT) [address] [place] [address] 90804Aiqkwattyg [Mass/Vol]1.32 mg/dLHigh0.60-1.30[facility] HospitalComment on above:Performed By: #### 3969201156, 5212043, 10104988, 9404621513, 2245500363, 9058734730 #### [facility] (DEFAULT) [address] [place] [address] 73818Viyinogs (S) [Mass/Vol]3.5 g/dLNormal1.5-4.3[facility] HospitalComment on above:Performed By: #### [id number], 1277832, 15346289, 4554198273, 3375077392, 1651518397 #### [facility] (DEFAULT) [address] [place] [address] 28410Dtpoiwz [Mass/Vol]84.0 mg/bJHwknyx96.0-118.0[facility] HospitalComment on above:Performed By: #### 2804526404, 2979979, 43124643, 0636891976, 9507706495, 2969323527 #### [facility] (DEFAULT) [address] [place] [address] 83970Kvukfwoaup251 mOsm/LInvalid Interpretation CodeKettering Health Troy HospitalComment on above:Performed By: #### 7563093551, 8628162, 33385449, 4051247357, 3530567490, 4691647731 #### [facility] (DEFAULT) [address] [place] [address] 03549Ocxqxecpf [Moles/Vol]4.0 mmol/LNormal3.6-5.1[facility] HospitalComment on above:Performed By: #### 4739988980, 3856492, 65802996, 8056090756, 0630047005, 0186040479 #### [facility] (DEFAULT) [address] [place] [address] 96656Xoypzue [Mass/Vol]7.7 g/dLNormal6.5-8.1[facility] Hospital Comment on above:Performed By: #### 5404894831, 3363901, 96326942, 0762233561, 8998265907, 0384125565 #### [facility] (DEFAULT) [address] [place] [address] 98753Gwszcu [Moles/Vol]135.0 mmol/JYbk296.0-144.0[facility] HospitalComment on above:Performed By: #### 0255816485, 6168230, 25698746, 7595138154, 0997669665, 6895040309 #### [facility] (DEFAULT) [address] [place] [address] 20030Pkyd nitrogen [Mass/Vol]16 mg/dLNormal8-26[facility] HospitalComment on above:Performed By: #### 8154231741, 6418249, 59065714, 5454066949, 4330500640, 3143822697 #### [facility] (DEFAULT) [address] [place] [address] 80818Wfyb nitrogen/Creatinine [Mass ratio]12.1 mg/mgNormal 4.6-16.2[facility] HospitalComment on above:Performed By: #### 3034428223, 1416958, 58651282, 6043239558, 0417577735, 5836588300 #### [facility] (DEFAULT) [address] [place] [address] 63852Aejtk Greenon 96-69-3245Vgyg CollectedYesInvalid Interpretation White HospitalComment on above:Performed By: #### 5997227237, 3752446, 70618585, 4044980276, 2751345500, 5098127931 #### [facility] (DEFAULT) [address] [place] [address] 68783LO Chest 2 Viewson 74-10-2795ER Chest 2 ViewsHISTORY: Cough and shortness of breath COMPARISON: Chest radiograph 12/23/2014 TECHNIQUE: Frontal and lateral views of the chest FINDINGS: Atherosclerotic calcification of the thoracic aorta. The cardiomediastinal silhouette is within normal limits. No pneumothorax, pleural effusion, or consolidation. No acute osseous abnormality. IMPRESSION: No radiographic evidence of acute intrathoracic process. Final Signed (Electronic Signature): Tyree Montesinos DO 07/03/23 1:23 pm Technologist: DOUGLicking Memorial HospitalCoaditi Summaryon 90-90-0356Loyczw Summary HTMLBase 64 DnhfbsidLZz5sQq+PGhlYWQ+BM2AHZLiU86hiEFwbQ4lF3ZLSPqRSpawFTJRAWoDRvWdutDoIO2jrBDd ZXJu [file] bGF (more content not included)...[facility] Low Dose Lung Screeningon 52-02-5748OL Low Dose Lung ScreeningExamination: Low-dose lung cancer screening protocol CT chest without IV contrast History: Nicotine dependence Comparison: May 15, 2021 1002 hrs. Technique: Low-dose lung cancer screening protocol using spiral CT of the chest without IV contrast. Axial, coronal and sagittal reformatted images were reviewed The right lung parenchyma shows mild emphysematous disease Small area of atelectasis, scarring right lower lobe. No focal parenchymal abnormalities no pleural effusions. No pneumothoraces.]. The left lung parenchyma shows mild emphysematous disease. There is again again a 3 mm perifissural nodule on the axial image 69. No additional, new focal parenchymal abnormalities. No pleural effusions. No pneumothoraces. [The heart and great vessels are intact.] [No significant periaortic, pretracheal, perihilar or subcarinal adenopathy.] [Within the brlmc-xc-klpd visualized abdominal contents are unremarkable] There is a mild dorsal kyphosis. There is multilevel degenerative change with bridging osteophytes. IMPRESSION: MILD EMPHYSEMATOUS DISEASE. BENIGN APPEARANCE OR BEHAVIOR NODULES WITH A VERY LOW LIKELIHOOD OF BECOMING A CLINICALLY ACTIVE CANCER DUE TO SIZE OR LACK OF GROWTH . CONTINUE ANNUAL SCREENING WITH LDCT IN [address] scans at this facility use dose modulation, iterative reconstruction and/or weight based dosing when appropriate to reduce radiation dose to as low as reasonably achievable Final Signed (Electronic Signature): Smooth Colindres MD 06/09/23 11:20 a Technologist: [facility] Mammo Screening 3D Bilateral.on 41-11-5462HL Mammo Screening 3D Bilateral.CLINICAL HISTORY: Screening Mammogram COMPARISON: [May 25, 2022] TECHNIQUE: 2D and 3D mammogram imaging of [both breasts] was performed. RESULT: DENSITY: [There are scattered areas of fibroglandular density.] [There is no suspicious mass, asymmetry, architectural distortion, or calcification.] [No significant change since the prior mammograms.] [] IMPRESSION: [BIRADS 1 : NEGATIVE, NORMAL INTERVAL FOLLOW UP] FOLLOW-UP: [12 months] DENSITY: Scattered MAMMOGRAPHY IS VERY IMPORTANT TO YOUR HEALTH. THE CURRENT [place] [employer] GUIDELINES RECOMMENDS ANNUAL MAMMOGRAPHY BEGINNING AT AGE 40 THIS FACILITY USES A REMINDER SYSTEM TO ENSURE ALL PATIENTS RECEIVE REMINDER NOTIFICATIONS AT THE APPROPRIATE TIME BASED ON THE RECOMMENDATIONS OF THIS EXAM. Board Certified Radiologist. Accredited by the ACR and FDA. Final Signed (Electronic Signature): Joe John MD 06/09/23 10:48 a Technologist: MIRI Assessment: 1-Negative Recommendation: Normal interval follow-upLicking Memorial HospitalComount nittany medical center Queryon 37-53-6679Xihkii [id number]#1.00OTHarrison Community HospitalProvider Orderson 97-54-5519Cnfqpszb Orders [id number]#1.00OTGTCleveland Clinic [facility] Provider [id number]#1.00Magruder HospitalUrine culture routineOrdered By: Yumiko Morrell on 36-21-8685Xsjtmnrj identified Cx Nom (U)Escherichia coliAshtabula General HospitalCOVID-19 SOFIAOrdered By: Jez Omalley on 07-12-2022 SARS-CoV+SARS-CoV-2 (COVID-19) Ag IA.rapid Ql (Resp)NegativeNegativeAshtabula General HospitalComment on above:This is a duplicate [place] SARS Antigen (FAYE) result to be used for statistical tracking purpose only.No Panel InformationOrdered By: Jez Omalley on 78-42-8800TYEM Antigen (LFIA)[facility] HospitalUrinalysis - DIPSTICKon 43-50-5404Khevwmdvhj (U)[employer] Other Bilirubin Ql (U)NegativeForadian [employer] Other Color (U)[employer] Other Glucose Ql (U)NegativeToto Communications Other Hemoglobin Ql (U)ModForadian [employer] Other Ketones Ql (U)NegativeForadian [employer] Other Leukocyte esterase Test strip Ql (U)smallForadian [employer] Other Nitrite Ql (U)PositiveToto Communications Other pH (U)5.5 [pH][employer] Other Protein Ql (U)30[place] [employer] Other Specific gravity (U) [Rel density]1.020Nort [employer] Other Urobilinogen (U) [Mass/Vol]0.2 mg/dLNort [employer] Other Urinalysis - DIPSTICKNorth [employer] Other XR Spine Lumbar Complete w/Flex AND [place] 88-05-3899OT Spine Lumbar Complete w/Flex AND ExtHISTORY: FINDINGS: Vertebral body heights are normal. Mild disc space loss thoracolumbar region and L3-4. Sclerosis involves posterior elements of the mid and distal lumbar spine and sacroiliac joints; however, no spondylolysis is seen. No acute fracture is identified. Soft tissues are relatively unremarkable. Flexion and extension: T12-L1 - L4-5: Normal alignment, no change L5-S1: Several mm anterolisthesis, no change Prominent aorto-arterial calcifications. IMPRESSION: 1. Distal lumbar arthritis, minimal L5-S1 anterolisthesis 2. No change with flexion and extension Report reported and signed by Orville Pina on 05/17/2022 0946NormalNortaurora west hospitaln [facility] HospitalXR ANKLE RIGHT (MIN 3 VIEWS)on 37-51-5220Xuldtvw and subtle cortical irregularity right lateral malleolus at level of tibiotalar joint without overlying soft tissue swelling. Likely sequela of old injury but difficult to exclude a subtle nondisplaced fracture. CT scan would be helpful to exclude and should be obtained as may be deemed clinically necessary. [facility] CONSOLIDATEDEXAMINATION: THREE XRAY VIEWS OF THE RIGHT ANKLE 01/20/2022 8:07 am COMPARISON: None. HISTORY: ORDERING SYSTEM PROVIDED HISTORY: pain TECHNOLOGIST PROVIDED HISTORY: pain FINDINGS: Ankle mortise intact. There is some curvilinear lucency and slight cortical irregularity of the lateral malleolus at the level of tibiotalar joint however no clear cortical discontinuity and there is no overlying soft tissue swelling. Findings probably due to old injury. CT scan would be helpful to definitively exclude the nondisplaced fracture although suspicion is low given lack of soft tissue swelling. Plantar calcaneal spur. No radiopaque foreign body. [facility] Rodolfo Barcenas MD - 01/20/2022 EXAMINATION: THREE XRAY VIEWS OF THE RIGHT ANKLE 01/20/2022 8:07 am COMPARISON: None. HISTORY: ORDERING SYSTEM PROVIDED HISTORY: pain TECHNOLOGIST PROVIDED HISTORY: pain FINDINGS: Ankle mortise intact. There is some curvilinear lucency and slight cortical irregularity of the lateral malleolus at the level of tibiotalar joint however no clear cortical discontinuity and there is no overlying soft tissue swelling. Findings probably due to old injury. CT scan would be helpful to definitively exclude the nondisplaced fracture although suspicion is low given lack of soft tissue swelling. Plantar calcaneal spur. No radiopaque foreign body. IMPRESSION: Lucency and subtle cortical irregularity right lateral malleolus at level of tibiotalar joint without overlying soft tissue swelling. Likely sequela of old injury but difficult to exclude a subtle nondisplaced fracture. CT scan would be helpful to exclude and should be obtained as may be deemed clinically necessary. [employer] Phone: radiology Study observation (narrative)[employer] Phone: XR ANKLE RIGHT (MIN 3 VIEWS)Ordered By: Rodolfo Fernandes on 05-44-7939AwguuWindar [employer]onics Phone: ED NOTEon 59-77-0450DUV [facility] HospitalED PROVIDERon 95-66-2424FII [facility] HospitalOSU NOTESUNM HospitalXR HAND RIGHT 3+ VIEWSon 45-73-2011UG HAND RIGHT 3+ VIEWSPROCEDURE: RIGHT HAND RADIOGRAPHS, 08/18/2017 3:30 PM CLINICAL HISTORY: Status post fall 2 days ago. Pain involving the fourth metacarpal region.TECHNIQUE: 3 view(s), 3 image(s).COMPARISON: None.RESULT: There is no acute fracture or osseous malalignment. Osseous mineralization is within normal limits. Mild degenerative changes involving the right hand including diffuse mild interphalangeal joint space loss and mild right first MCP joint space loss. Soft tissues are within normal limits.IMPRESSION: No acute osseous abnormality.Mild right hand osteoarthritis as described.[facility] Vital Signs Date TimeVital SignValuePerforming CzvnvfcdnXzaxbtjs11-91-2170 12:00-0500Body .88 cmYumiko Hamptonr DENTAL CERAMIST HELPER Work Phone: [facility]11-11-2025 12:00-0500 Body mass index (BMI) [Ratio]20 kg/j7JhmgefckYumiko Andrewacher DENTAL CERAMIST HELPER Work Phone: [phone]11-11-2025 12:00-0500 Body kkemxh68.13 kgYumiko Hamptonr DENTAL CERAMIST HELPER Work Phone: [phone]11-11-2025 12:00-0500 Heart rate74 /minYumiko Morrell DENTAL CERAMIST HELPER Work Phone: [phone]11-11-2025 12:00-0500 SaO2% (BldA) [Mass fraction]99 %Yumiko Morrell DENTAL CERAMIST HELPER Work Phone: [phone]08-11-2025 09:56-0400 Body qsecrd484.[address] [place], [place] 3028108-11-2025 09:56-0400Body mass index (BMI) [Ratio]20.07 kg/m[address]08-11-2025 09:56-0400Body edouhvqkktb83.9 [degF][address]08-11-2025 09:56-0400Body kgsjus45.[address] [place], [place] 3028108-11-2025 09:56-0400 Diastolic blood eriowmsu15 mm[Hg][address]08-11-2025 09:56-0400Heart rate81 /minMth [address] [place], [place] 3028108-11-2025 09:56-0400 Respiratory rate16 /minMth [address] [place], [place] 3028108-11-2025 09:56-0400 Systolic blood gywctzhy468 mm[Hg][address]07-28-2025 11:20-0400Body mjtoza889.88 cmYumiko Hamptonr DENTAL CERAMIST HELPER Work Phone: [phone]07-28-2025 11:20-0400 Body mass index (BMI) [Ratio]20.1 kg/d0JutqanwgYumiko Morrell DENTAL CERAMIST HELPER Work Phone: [phone]07-28-2025 11:20-0400 Body ixvezhnqxtz58 [degF]Yumiko Beverlyravinder DENTAL CERAMIST HELPER Work Phone: [phone] [place], [place] [address]07-28-2025 11:20-0400 Body .3 kgYumiko Morrell DENTAL CERAMIST HELPER Work Phone: [phone]07-28-2025 11:20-0400 Diastolic blood defruzzg07 mm[Hg]Yumiko Beverlyravinder DENTAL CERAMIST HELPER Work Phone: [phone]68[facility]07-28-2025 11:20-0400 Heart rate96 /minYumiko Morrell DENTAL CERAMIST HELPER Work Phone: [phone] [place], [place] [address]07-28-2025 11:20-0400 SaO2% (BldA) [Mass fraction]99 %Yumiko Andrewantony DENTAL CERAMIST HELPER Work Phone: [phone]07-28-2025 11:20-0400 Systolic blood qtlfrpuo610 mm[Hg]Yumiko Hamptonritika DENTAL CERAMIST HELPER Work Phone: [phone]07-14-2025 09:53-0400 Body kztnnerkqir51.2 [degF][address]07-14-2025 09:53-0400 Diastolic blood mm[Hg][address]07-14-2025 09:53-0400Heart rate93 /minMth [address] [place], [place] 3028107-14-2025 09:53-0400 Respiratory rate18 /minMth [address] [place], [place] 3028107-14-2025 09:53-0400 Systolic blood jscaqmrg941 mm[Hg][address]06-16-2025 10:00-0400Body .59 [degF][address] Seccarlie [facility] HospitalWbceyy69-76-7503 10:00-0400Diastolic blood mm[Hg]Mth 03Bon Seccarlie [facility] [place] 04-08-2025 10:00-0400Heart rate78 /minMth 03Bon Seccarlie [facility] HospitalZnucvb67-55-8068 10:00-0400Respiratory rate18 /minMth 03Bon Seccarlie [facility] HospitalYoydne63-28-2400 10:00-0400Systolic blood gellhoyf285 mm[Hg][facility] 03Bon [facility] 03-05-2025 09:50-0400Body dsimqnoihub07.4 [degF][facility] 03Bon Seccarlie [facility] [place] 03-05-2025 09:50-0400Diastolic blood adlktjsw89 mm[Hg][facility] 03Bon Seccarlie [facility] HospitalJmtomw28-07-1803 09:50-0400Heart rate78 /minMth 03Bon [facility] 03-05-2025 09:50-0400Respiratory rate16 /minMth 03Bon [facility] [place] 03-05-2025 09:50-0400Systolic blood yhehvxsd214 mm[Hg][facility] 03Bon [facility]-15-2025 10:15-0400Body vkwovtvabgx67.01 [degF][facility] 03Bon [facility]-15-2025 10:15-0400Diastolic blood mm[Hg][facility] 03Bon [facility]04-15-2025 10:15-0400Heart rate84 /minMth 03Bon [facility] [place] 02-05-2025 10:15-0400Respiratory rate18 /minMth 03Bon [facility] [place] 02-05-2025 10:15-0400Systolic blood oiznuvuo910 mm[Hg]Mth 03Bon Seccarlie [facility] HospitalLvnahy77-58-0174 10:21-0400Body ymzofnrcfyf28.39 [degF][facility] 03Bon [facility]03-18-2025 10:21-0400Diastolic blood amyjrata50 mm[Hg][facility] 03Bon [facility] Rhqxvs97-49-8830 10:21-0400Heart rate78 /minMth 03Bon [facility] 01-08-2025 10:21-0400Respiratory ydcz819 /minMth 03Bon [facility] 01-08-2025 10:21-0400Systolic blood mm[Hg][facility] 03Bon [facility]02-18-2025 10:30-0500Diastolic blood mm[Hg][facility] 03Bon [facility]02-18-2025 10:30-0500Heart rate83 /minMth 03Bon [facility] 12-11-2024 10:30-0500Respiratory rate18 /minMth 03Bon [facility] [place] 12-11-2024 10:30-0500Systolic blood mm[Hg][facility] 03Bon [facility]02-16-2025 21:38-0500Body tzugbgjyujr13.5 [degF]Keegan Tejeda MD Work Phone: [facility]02-16-2025 21:38-0500Diastolic blood lqnbwlul61 mm[Hg]Keegan Tejeda MD Work Phone: [facility]02-16-2025 21:38-0500Heart abob002 /Harper Tejeda MD Work Phone: [facility]02-16-2025 21:38-0500 Respiratory rate16 /Harper Tejeda MD Work Phone: [facility]02-16-2025 21:38-5110MrD1% (BldA) [Mass fraction]96 %Keegan Tejeda MD Work Phone: Bon [facility]02-16-2025 21:38-0500Systolic blood avhowwpb330 mm[Hg]Keegan Tejeda MD Work Phone: [facility]01-15-2025 10:49-0500Body ndbtjyeaxzr15.11 [degF][facility] 03Bon [facility]01-15-2025 10:49-0500 Diastolic blood gbpoyxut40 mm[Hg][facility] 03Bon [facility]01-15-2025 10:49-0500Heart rate75 /minMth 03Bon [facility] Etzmru02-37-1564 10:49-0500 Respiratory rate18 /minMth 03Bon [facility] HospitalQtkwgu18-08-0288 10:49-0500 Systolic blood mm[Hg][facility] 03Bon [facility] HospitalEukjnx25-08-1176 10:56-0500Body sdglxaoicms80.69 [degF][facility] 03Bon [facility] HospitalDhshyp35-05-2732 10:56-0500Diastolic blood ftggkpim21 mm[Hg][facility] 03Bon [facility] 10-10-2024 10:56-0500Heart rate76 /minMth 03Bon [facility] HospitalNxfxnf95-49-5269 10:56-0500Respiratory rate20 /minMth 03Bon [facility] HospitalCauerp67-09-4222 10:56-0500Systolic blood jszkigfc693 mm[Hg][facility] 03Bon [facility] 09-13-2024 11:00-0500Body vkdaevbeshz11.3 [degF][facility] 03Bon [facility] 09-13-2024 11:00-0500Diastolic blood mm[Hg][facility] 03Bon [facility]11-21-2024 11:00-0500Heart rate87 /minMth 03Bon [facility] 09-13-2024 11:00-0500Respiratory rate18 /minMth 03Bon [facility] 09-13-2024 11:00-0500Systolic blood bweetprb397 mm[Hg][facility] 03Bon [facility]10-24-2024 10:58-0400Body ucbgivekqac87.9 [degF][facility] 03Bon [facility]10-24-2024 10:58-0400Diastolic blood cvaxaxgo53 mm[Hg][facility] 03Bon [facility]10-24-2024 10:58-0400Heart rate75 /minMth 03[facility] [place] 08-16-2024 10:58-0400Respiratory rate20 /minMth 03Bon [facility] [place] 08-16-2024 10:58-0400Systolic blood hslsptji776 mm[Hg][facility] 03Bon [facility]09-04-2024 09:36-0400Body avztor560.9 cmMth [facility]Rav[facility] [employer] 06-27-2024 09:36-0400Body mass index (BMI) [Ratio]19.67 kg/m2Mth [facility]09-04-2024 09:36-0400Body mjgohd98.77 kgMth [facility]01-08-2024 13:00-0500Body prigtm267.88 cmJennifer Rohrbacher Other [employer] Other [id number] 13:00-0500Body mass index (BMI) [Ratio] 20.61 kg/z2Arldlhko Rohrbacher Other [employer] Other 01-08-2024 13:00-0500Body vpqryr78.95 kgJennifer Rohrbacher Other [employer] Other [phone] 13:00-0500Diastolic blood mm[Hg] Yumiko Siriarbacher Other [employer] Other 01-08-2024 13:00-0500Systolic blood xyyipmiy020 mm[Hg] Yumiko Rohrbacher Other [employer] Other 12-08-2023 11:30-0500Body oehhec786.88 cmJennifer Rohrbacher Other [employer] Other 12-08-2023 11:30-0500Body mass index (BMI) [Ratio] 20.61 kg/o8Nfazwhug Rohrbacher Other [employer] Other 12-08-2023 11:30-0500Body tvxkug04.95 kgJennifer Rohrbacher Other [employer] Other 12-08-2023 11:30-0500Diastolic blood todkbcfi87 mm[Hg] Yumiko Kamranacher Other [employer] Other 12-08-2023 11:30-0500Systolic blood gxwdreba520 mm[Hg] Yumiko Kamranacher Other [employer] Other 10-23-2023 13:30-0400Body vrtefl042.88 cmYumiko Siriarbacher Other [employer] Other 10-23-2023 13:30-0400Body mass index (BMI) [Ratio] 20.34 kg/p7Apcgugdk Siriarbacher Other [employer] Other 10-23-2023 13:30-0400Body .04 kgYumiko Siriarbacher Other [employer] Other 10-23-2023 13:30-0400Diastolic blood gwesusnb51 mm[Hg] Yumiko Kamranacher Other [employer] Other 10-23-2023 13:30-4121QzC4% (BldA) [Mass fraction]99 % Yumiko Kamranacher Other [employer] Other 10-23-2023 13:30-0400Systolic blood kfilpoky185 mm[Hg] Yumiko Kamranacher Other [employer] Other 09-12-2023 11:30-0400Body xxkqer942.88 cmYumiko Beverlyrbacher Other [employer] Other 09-12-2023 11:30-0400Body mass index (BMI) [Ratio] 20.02 kg/v8Mkkegfeb Rohrbacher Other [employer] Other 09-12-2023 11:30-0400Body ernelh75.95 kgDallinnnifer Rohrbacher Other [employer] Other 09-12-2023 11:30-0400Diastolic blood sbequttd06 mm[Hg] Yumiko Hamptonr Other [employer] Other 09-12-2023 11:30-3468LyH5% (BldA) [Mass fraction]100 % Yumiko Beverlyravinder Other [employer] Other 09-12-2023 11:30-0400Systolic blood xjgabamv705 mm[Hg] Yumiko Hamptonr Other [employer] Other 07-10-2023 11:00-0400Body mzedqv198.88 cmYumiko Beverlyrbacher Other [employer] Other 07-10-2023 11:00-0400Body mass index (BMI) [Ratio] 20.61 kg/t5Gsuvpyqh Rohrbacher Other [employer] Other 07-10-2023 11:00-0400Body xuawtd06.95 kgDallinnnifer Rohrbacher Other [employer] Other 07-10-2023 11:00-0400Diastolic blood almblxdm599 mm[Hg]Yumiko Hamptonr Other [employer] Other 07-10-2023 11:00-5420TaP4% (BldA) [Mass fraction]100 % Yumiko Beverlymarioacher Other [employer] Other 07-10-2023 11:00-0400Systolic blood irufefii877 mm[Hg] Yumiko Andrewrosar Other [employer] Other 04-11-2023 12:00-0400Body jujkpc897.88 cmYumiko Morrell Other [employer] Other 04-11-2023 12:00-0400Body mass index (BMI) [Ratio] 20.88 kg/s8FfsohgxkYumiko Andrewacher Other [employer] Other 04-11-2023 12:00-0400Body dmvijj37.85 kgYumiko Hamptonr Other [employer] Other 04-11-2023 12:00-0400Diastolic blood luexzmmn76 mm[Hg] Yumkio Kamranacher Other [employer] Other 04-11-2023 12:00-8730LfU7% (BldA) [Mass fraction]97 % Yumiko Kamranacher Other [employer] Other 04-11-2023 12:00-0400Systolic blood rzslurjj682 mm[Hg] Yumiko Siriarbacher Other [employer] Other 01-09-2023 15:00-0500Body pzsvok883.88 cmYumiko Rohrbacher Other [employer] Other 01-09-2023 15:00-0500Body mass index (BMI) [Ratio] 20.88 kg/x2BcedvjbiYumiko Beverlyrbacher Other [employer] Other 01-09-2023 15:00-0500Body tnciwmfcksf41.2 [degF] Yumiko Beverlymarioacher Other [employer] Other [phone] 15:00-0500Body bahfun82.85 kgYumiko Beverlyrbacher Other [employer] Other 9-239973-04901298-56-9152 15:00-0500Diastolic blood yxchggvc84 mm[Hg] Yumiko Siriarbacher Other [employer] Other [id number] 15:00-0500Respiratory rate18 /minYumiko Beverlyrbacher Other [employer] Other 01-09-2023 15:00-6906FkY0% (BldA) [Mass fraction]98 % Yumiko Siriarbacher Other [employer] Other 01-09-2023 15:00-0500Systolic blood eahqnqot839 mm[Hg] Yumiko Beverlyrbacher Other [employer] Other 12-12-2022 15:30-0500Body .88 cmYumiko Beverlyrbacher Other [employer] Other 12-12-2022 15:30-0500Body mass index (BMI) [Ratio] 20.91 kg/l6XvhvvukkYumiko Andrewantony Other [employer] Other 12-12-2022 15:30-0500Body .95 kgYumiko Beverlyravinder Other [employer] Other 12-12-2022 15:30-0500Diastolic blood orsnmtpt59 mm[Hg] Yumiko Porsche Other [employer] Other 12-12-2022 15:30-2243GpN1% (BldA) [Mass fraction]99 % Yumiko Porsche Other [employer] Other 12-12-2022 15:30-0500Systolic blood mm[Hg] Yumiko Porsche Other [employer] Other 12-12-2022 12:37-0500Respiratory rate16 /minBON Golf12112-12-2022 12:36-0500Body ugxqqaaswck40.9 [degF][employer]12112-12-2022 12:36-0500Diastolic blood cdrejcch30 mm[Hg]BON [employer]12-12-2022 12:36-0500Systolic blood fzshrfuh737 mm[Hg]BON [employer]12112-12-2022 12:34-0500Heart rate71 /minBON Golf121 10-04-2022 12:34-8997IeI3% (BldA) [Mass fraction]99 %BON [employer] 07-14-2022 09:12-0400Diastolic blood mm[Hg]MD Jez Omalley Work Phone: 1(419)627-[address] [place], [place] 5927009-21-2022 09:12-0400 Heart rate56 /min Jez Omalley Work Phone: 1(765)[facility] [place], [place] 5927009-21-2022 09:12-0400 Respiratory rate16 /minMD Jez Omalley Work Phone: 2(675)[address] [place], [place] 8553909-21-2022 09:12-0400 SaO2% (BldA) [Mass fraction]100 %MD Jez Omalley Work Phone: 1(341)[address] [place], [place] 8553909-21-2022 09:12-0400 Systolic blood mm[Hg]MD Jez Omalley Work Phone: 1(317)[address] [place], [place] 8553909-21-2022 07:40-0400 Body bidfpa090.88 cm Jez Omalley Work Phone: 1(200)[address] [place], [place] 8553909-21-2022 07:40-0400 Body lsdmewtpvxf52 [degF]MD Jez Omalley Work Phone: 1(318)[address] [place], [place] 8553909-21-2022 07:40-0400 Body qexbmn00.21 kg Jez Omalley Work Phone: 1(720)[address] [place], [place] 8553909-19-2022 16:00-0400 Body hvvxoc323.88 cmYumiko Morrell Other [employer] Other 09-19-2022 16:00-0400Body mass index (BMI) [Ratio] 21.29 kg/g4LrmybewlYumiko Andrewacher Other [employer] Other 09-19-2022 16:00-0400Body jteqhs07.22 kgYumiko Andrewacher Other [employer] Other 09-19-2022 16:00-0400Diastolic blood ohsxsejs89 mm[Hg] Yumiko Andrewacher Other [employer] Other 09-19-2022 16:00-7485IfK0% (BldA) [Mass fraction]100 % Yumiko Andrewacher Other [employer] Other 09-19-2022 16:00-0400Systolic blood mzxxoock327 mm[Hg] Yumiko Andrewacher Other [employer] Other 07-08-2022 10:30-0400Body iggcnm581.88 cmYumiko Hamptonr Other [employer] Other 07-08-2022 10:30-0400Body mass index (BMI) [Ratio] 20.88 kg/y0RaohupddYumiko Andrewacher Other [employer] Other 07-08-2022 10:30-0400Body qhvejp16.85 kgYumiko Andrewacher Other [employer] Other 07-08-2022 10:30-0400Diastolic blood lgjnbnqa44 mm[Hg] Yumiko Andrewacher Other [employer] Other 07-08-2022 10:30-4873XrU9% (BldA) [Mass fraction]99 % uYmiko Andrewacher Other [employer] Other 07-08-2022 10:30-0400Systolic blood uifjqiqn306 mm[Hg] Yumiko Beverlyrbacher Other [employer] Other 03-30-2022 07:27-0400Body psxjzidcnfs40.39 [degF] Radha Chance MD Work Phone: [facility] HospitalSomqoi91-14-4722 07:27-0400Diastolic blood ovnacluv22 mm[Hg]Radha Chance MD Work Phone: [facility] HospitalKaolcf68-67-2253 07:27-0400Heart rate64 /min Radha Chance MD Work Phone: [facility] HospitalDvtrco06-30-6802 07:27-0400Respiratory rate16 /minRadha Chance MD Work Phone: [facility] HospitalJddykw38-71-0230 07:27-6220KyK9% (BldA) [Mass fraction]97 %Radha Chance MD Work Phone: [facility] HospitalWvcmsp26-16-0541 07:27-0400Systolic blood czybbzei930 mm[Hg]Radha Chance MD Work Phone: [facility] Health Encounters Encounter DateEncounter TypeCare ProviderFacilityStart: 09-03-2025 End: 86-12-7751xtqpxeqymrWgoddrjr Rohrbacher APRN Work Phone: [phone]-[facility]kaovofwl Health OrthopedicsStart: 09-03-2025 End: 69-60-5966Szipczx encounter procedureMakayla Rangel [facility] Work Phone: Start: 2025 End: 18-74-1420Dctxomxq ReferredYumiko Morrell APRN LICENSED PHARMACIST-Lab [facility] Work Phone: Start: 2025 End: 47-63-5302vckfkmgqleTndbsief Rohrbacher APRN Work Phone: [facility] Work Phone: Start: 2025 End: 45-09-4195Waeregl encounter procedureYumiko Morrell APRN LICENSED PHARMACIST-[facility] Work Phone: Start: 07-02-2025 End: 76-36-3474slxgdceyuqBKSGQU A OLEXAMercy [facility]ubon HospitalStart: 07-02-2025 End: 40-41-0642Ggeolvwyow hospital [facility] by physicianSt[facility]a [facility] MammographyComment on above:Osteoporosis, unspecified osteoporosis type, unspecified pathological fracture presence; Asymptomatic menopause; Encounter for long-term (current) use of medications; Asymptomatic menopausal stateStart: 06-03-2025 End: 27-13-4450olubfdaaadTWAAIFCPFernanda Resendiz HospitalStart: 06-03-2025 End: 90-72-5582Kwjkngrhwd hospital [facility] by physician[facility] [address] [facility] (MOB)Comment on above:Age-related osteoporosis without current pathological fracture (Primary Dx)Start: 05-20-2025 End: 55-04-4366acweaerphaTfzzwblu [employer]orsche SCHNEIDER Work Phone: [facility] Work Phone: Start: 05-20-2025 End: 58-66-5137Mlpmdvu encounter procedureYumiko Morrell DENTAL CERAMIST HELPER [facility] Work Phone: Start: 05-06-2025 End: 77-67-9526tjltuxebveCPVZYLZXFernanda Resendiz HospitalStart: 05-06-2025 End: 21-87-4174Xuwfnxkbay hospital visit by physicianSt[facility] [address] [facility] (MOB)Comment on above:Age-related osteoporosis without current pathological fracture (Primary Dx)Start: 04-08-2025 End: 91-60-6278aspticasxrCWZMBBVGCaryn Resendiz HospitalStart: 04-08-2025 End: 16-59-9598Hplfaoxiam hospital visit by physicianSt[facility] [address] [facility] (MOB)Comment on above:Age-related osteoporosis without current pathological fracture (Primary Dx)Start: 03-05-2025 End: 68-06-7433pajdfrdifyXTHYPQHSCaryn Resendiz HospitalStart: 03-05-2025 End: 18-15-2239Ettlonggzf hospital visit by physicianSt[facility] [address] [facility] (MOB)Comment on above:Age-related osteoporosis without current pathological fracture (Primary Dx)Start: 02-05-2025 End: 06-55-2977aqvvisqdmxSHONWSRNCaryn Zuniga [facility] HospitalStart: 02-05-2025 End: 04-53-3312Ctqrzprhjk hospital visit by physicianSt[facility] [address] [facility] (MOB)Comment on above:Age-related osteoporosis without current pathological fracture (Primary Dx)Start: 01-08-2025 End: 02-81-2414vbbiwuyzjiSRRTJFKWCaryn Zuniga [facility] HospitalStart: 01-08-2025 End: 97-98-5225Jgriskryeh hospital visit by physicianSt[facility] [address] [facility] (MOB)Comment on above:Age-related osteoporosis without current pathological fracture (Primary Dx)Start: 12-11-2024 End: 43-31-3605mnqnucvoujOTDYSXGBCaryn Zuniga [facility] HospitalStart: 12-11-2024 End: 31-84-0813Tysspbacir hospital visit by physicianSt[facility] [address] [facility] (MOB)Comment on above:Age-related osteoporosis without current pathological fracture (Primary Dx)Start: 12-09-2024 End: 55-92-8938Zjshdqjtz department patient visitKeegan Tejeda MD Work Phone: [facility] Emergency DepartmentComment on above:Left leg pain (Primary Dx); Contusion of right knee, initial encounter; Left hand painStart: 11-07-2024 End: 91-74-3355cbbomujefkPKJNSYITCaryn Zuniga [facility] HospitalStart: 11-07-2024 End: 73-16-6036Zudckdinyv hospital visit by physicianSt[facility] [address] [facility] (MOB)Comment on above:Age-related osteoporosis without current pathological fracture (Primary Dx)Start: 10-10-2024 End: 55-81-9584dzpvtzoaeyVYLPCNSHCaryn Zuniga [facility] HospitalStart: 10-10-2024 End: 62-10-5335Ybbpafmfzj hospital visit by physicianSt[facility] [address] [facility] (MOB)Comment on above:Age-related osteoporosis without current pathological fracture (Primary Dx)Start: 09-13-2024 End: 24-91-6254oobggkerugNZKSABVAFernanda Resendiz HospitalStart: 09-13-2024 End: 07-85-3831Fberwdvmnc hospital visit by physicianSt[facility] [address] [facility] (MOB)Comment on above:Age-related osteoporosis without current pathological fracture (Primary Dx)Start: 08-16-2024 End: 18-56-5243zgpnaofnpdNYYQVKCFFernanda Luifin HospitalStart: 08-16-2024 End: 55-63-0936Ynomecbwnu hospital visit by physicianSt[facility] [address] [facility] (MOB)Comment on above:Age-related osteoporosis without current pathological fracture (Primary Dx)Start: 07-19-2024 End: 30-26-3830afyqsxmgntODNTDQRKFernanda Resendiz HospitalStart: 06-27-2024 End: 80-16-4808Bdjsixqrqk hospital visit by physician[facility] MammographyComment on above:Postmenopausal state; Special screening for osteoporosisEncounter for screening mammogram for malignant neoplasm of breastStart: 95-07-2312Mroyvcx encounter procedureYumiko Morrell APRN Work Phone: [facility] Hospitaltart: 10-31-2023 End: 91-42-8155vyhthjnqkeDlfljatd Rohrbacher Other [employer] Other Start: 77-20-6385Rraajx outpatient visit 25 minutes Yumiko Peoples [facility] Hospitaltart: 09-30-2023 End: 80-65-4460cdhhnybpmiAhhapnvw Rohrbacher Other [employer] Other Start: 27-32-6900Ifkrbx outpatient visit 15 minutes Yumiko Peoples [facility] Hospitaltart: 08-16-2023 End: 52-15-7681dnuphdimfcQjzwjgzc Rohrbacher Other [employer] Other Start: 64-80-8114Gfqmuoosq encounterJennifer RohrbacherFPG [facility] ClinicStart: 08-15-2023 End: 98-99-1827zefssadjzaHibvyxkw Rohrbacher Other [employer] Other Start: 45-99-2423Rbbeiz outpatient visit 15 minutes Yumiko HamptonrFPG [facility] ClinicStart: 08-10-2023 End: 33-62-2360tkydchtrklEujiyrdh Rohrbacher Other [employer] Other Start: 73-39-4202Qayzvm outpatient visit 15 minutes Yumiko NinaPG [facility] ClinicStart: 07-05-2023 End: 74-14-0094hudncyaowsWgqhdooi Rohrbacher Other [employer] Other Start: 46-73-0407Scgmqi outpatient visit 25 minutes Yumiko NinaToledo [facility] ClinicStart: 07-02-2023 End: 62-04-8115Wiwvzetqb department patient visitScoelver Murphyton Facility:[facility] Hospitaltart: 06-14-2023 End: 70-98-7759qkdkkswbinVomoxmha Rohrbacher Other [employer] Other Start: 31-75-8330Vafnbybqj encounterJennifer RohrbacherMount Hope Livra Panels CoStart: 06-09-2023 End: 02-08-4543jjcwijdjlzScjychyu Rohrbacher Other [employer] Other Start: 28-12-3429Qmzdwbvjk encounterJennifer RohrbacherNort ClearStreamrt: 06-08-2023 End: 92-92-7573awpikvhfzhBhlvlqrg RohrbacherFacility:[facility] Hospitaltart: 05-02-2023 End: 92-44-8674hpivouplujBnatcfqp Rohrbacher Other [employer] Other Start: 72-49-1792Nrakltn encounter procedureJennifer SiriarbacherFVencor Hospital ClintonStart: 02-01-2023 End: 93-58-2267sptgzmkkosCcvisaui Rohrbacher Other [employer] Other Start: 93-39-3291Uapomm outpatient visit 15 minutes Yumiko KamranrosaThadEast Orange General HospitaltonStart: 12-01-2022 End: 53-08-8010twfrhevfslUmizzytz Rohrbacher Other [employer] Other Start: 41-68-2065Ocenbtgak encounterJennifer KamranacheThadEast Orange General HospitaltonStart: 11-01-2022 End: 39-63-9903wibqztxsjiIiyyivbb Rohrbacher Other [employer] Other Start: 50-40-5622Sbbjxe outpatient visit 15 minutes Yumiko MaicoVirtua MarltonStart: 10-04-2022 End: 07-32-3294rwtezkyxcsCslafhyq Rohrbacher Other [employer] Other Start: 27-97-6816Gjiuhs outpatient visit 15 minutes Yumiko KamranrosaBellin Health's Bellin Psychiatric CenterStart: 10-04-2022 End: 79-49-1647Fqrpomtqx department patient visitOhio [facility] EDComment on above:Elevated blood pressure reading without diagnosis of hypertension (Primary Dx)Start: 07-15-2022 End: 33-64-9190yipvnwavgrIxoqpyvb Rohrbacher Other [employer] Other Start: 91-24-5738Dezvedoxz encounterJennifer SriiarbacherNort [employer] CoStart: 07-14-2022 End: 44-91-8972Xvaqgaeue to same day surgery centerMD Jez Omalley Work Phone: [facility]-Digestive HealthStart: 07-12-2022 End: 40-55-5426dpfjzjqohhSehnsrvb Rohrbacher Other [employer] Other Start: 70-24-5817Mrmiqg outpatient visit 15 minutes Yumiko Peoples [facility] ClintonStart: 07-12-2022 End: 51-68-7520Bdzdvit encounter procedureMD Jez Omalley Work Phone: [facility] Kdn-Bpf-Lvzzalbt Testing Start: 06-03-2022 End: 49-84-3872rppylrgngvGswvyxte Rohrbacher Other [employer] Other Start: 45-82-7547Yoaomylio encounterJennifer RohrbacherFPG Referral CoordinatorStart: 06-02-2022 End: 81-38-5175fngwqsvnrgOpbnkvhb Rohrbacher Other [employer] Other Start: 12-12-9870Rjtzxumxu encounterJennifer SiriarbacherNort [employer] CoStart: 05-13-2022 End: 33-69-8946pkjlutkhsmBircteef Rohrbacher Other [employer] Other Start: 36-46-0376Zeioneswp encounterJennifer RohrbacherFPG [facility] [place]Start: 05-03-2022 End: 44-13-0069cqquivuyglDukrtayn Rohrbacher Other [employer] Other Start: 23-24-9697Cbxwvvkck encounterYumiko NinaVirtua MarltonStart: 04-30-2022 End: 84-47-8303sarsdqwfunGcwbuzed Rohrbacher Other [employer] Other Start: 13-31-9572Wkbiwnl encounter procedureYumiko NinaVirtua MarltonStart: 01-20-2022 End: 19-76-3670Scuwzoodt department patient visitRadha Chance MD Work Phone: [facility] EDComment on above:Facial laceration, initial encounter (Primary Dx); Acute right ankle painStart: 08-18-2017 End: 29-06-2009Qvwtuhxce department patient visitCincinnati [facility] Procedures DateProcedureProcedure DetailPerforming ClinicianStart: 36-21-0536Irgsm culture Yumiko Morrell DENTAL CERAMIST HELPER Work Phone: Start: 19-26-8241Vqd bone density study 1/> sites axial Bell Rangel MD Work Phone: Start: 47-15-2216Diq bone density study 1/> sites axial Laura Morrell DENTAL CERAMIST HELPER - LICENSED PHARMACIST Work Phone: Start: 67-75-8884Bsrpjbdnj colonoscopyMD Jez Omalley Work Phone: Start: 78-53-3997Ou lower extremity w/o contrast materialRadha Chance MD Work Phone: start: 33-10-6047Prpvp ankle complete minimum 3 views Radha Chance MD Work Phone: sARS Antigen (LFIA)MD Jez Omalley Work Phone: Urine cultureMD Jez Omalley Work Phone: Plan of Treatment DateCare ActivityDetailAuthorStart: 20-29-6198OWhH/Tdap/Td vaccine (2 - Td or Tdap)DTaP/Tdap/Td vaccine (2 - Td or Tdap)[facility]: 2027 Respiratory Syncytial Virus (RSV) or age 60 yrs+ (1 - 1-dose 75+ series)Respiratory Syncytial Virus (RSV) or age 60 yrs+ (1 - 1-dose 75+ series)[facility]: 21-46-9062Gtmrynmnc for malignant neoplasm of breastBreast cancer screenBon [facility] Health[facility]: 2025 Bacteria identified in Urine by CultureUrine [facility]: 05-90-0653Mbrgq cultureProMedica Memorial Hospitaltart: 07-02-2025 End: 20-27-6389Buhfqhb encounter xwzrlbizo43/09/2025 10:00 AM EDT Appointment [facility] Mammography [address] [place], [place] [phone] sched [facility] MammographyComment on above:sched w [facility] Hospitaltart: 39-63-2013ENIXG-19 Vaccine ( season)COVID-19 Vaccine ( season)[facility] 06-03-2025 End: 92-66-2566Xnwvjlh encounter vjxugtufr09/11/2025 10:00 AM EDT Appointment [facility] Specialty Clinic (MOB) [address] [place], [place] [phone] Evenity. Yumiko VALENCIA. [facility]osisK[facility] ([facility]B)Comment on above:Evenity. Yumiko VALENCIA. OsteoporosisStart: 13-08-4837Cdhfuazac vaccinationFlu vaccine (#1)[facility] 05-06[facility]2025 End: 00-44-0689Rgmfxqt encounter syazuofnu04/14/2025 10:00 AM EDT Appointment [facility] Specialty Clinic (MOB) [address] [place], [place] [phone] Evenstanley. Yumiko VALENCIA. [facility]osisK[facility] ([facility]B)Comment on above:Evenity. Yumiko VALENCIA. OsteoporosisStart: 04-05-2025 End: 54-92-6070Iiuczqt encounter hwmxyaucw96/13/2025 10:00 AM EDT Appointment [facility] Specialty Clinic (MOB) [address] [place] [phone] Evenity. Yumiko AGUILERAP. [facility]osisKINGSBR[facility] ([facility]B)Comment on above:Evenity. Yumiko AGUILERAP. OsteoporosisStart: 03-05-2025 End: 40-66-3871Wtghjbs encounter kuvrlbfuw19/13/2025 10:[address] [facility] (MOB) [address] [place] [phone] Evenity. Yumiko Pringle MARKETING REPORTING ANALYST. OsteoporosisSDHZ Specialty Clinic (MOB)Comment on above:Evenity. Yumiko AGUILERAP. OsteoporosisStart: 02-05-2025 End: 20-54-5973Mpixdzo encounter eruanbzkh84/15/2025 10:[address] [facility] Special[facility] Clinic (MOB) [address] [place] [phone] Evenity. Yumiko AGUILERAP. [facility]osisK[facility] ([facility]B)Comment on above:Evenity. Yumiko AGUILERAP. OsteoporosisStart: 01-08-2025 End: 68-83-6598Wqrdhhu encounter yqcchuurc13/18/2025 10:30 AM EDT Appointment [facility] Specialty Clinic (MOB) [address] [place] [phone] Evenity. Yumiko AGUILERAP. [facility]osisK[facility] (MOB)Comment on above:Evenity. Yumiko AGUILERAP. OsteoporosisStart: 69-84-5858Knnjolkukj hospital visit by cmxuxbrem49/18/2025 10:30 AM EST Hospital Encounter [facility] Specialty Clinic (MOB) [address] [place] [phone] [facility] Specialty Clinic (MOB)Start: 12-05-2024 End: 28-18-1287Sfmfjyl encounter dofxpbeyx67/12/2025 11:[address] [facility] Special[facility] Clinic (MOB) [address] [place] [phone] Evenity. Yumiko AGUILERAP. [facility] ([facility]B)Comment on above:Evenity. Yumiko AGUILERAP. OsteoporosisStart: 11-07-2024 End: 33-65-9111Pyaranz encounter /15/2025 11:00 AM EST Appointment [facility] Specialty Clinic (MOB) [address] [place] [address] Evenity. Yumiko AGUILERAP. [facility] (MOB)Comment on above:Evenity. Yumiko VALENCIA. OsteoporosisStart: 73-00-7680Arzwrj Wellness Visit (Medicare Advantage)Annual Wellness Visit (Medicare Advantage)[facility] HealthStart: 10-10-2024 End: 38-57-0779Fhceiuc encounter kqiclxwsy98/18/2024 11:00 AM EST Appointment [facility] Specialty Clinic (MOB) [address] [place] [address] Evenity. Yumiko VALENCIA. [facility]osisKINGSBR[facility] (MOB)Comment on above:Evenity. Yumiko VALENCIA. OsteoporosisStart: 09-13-2024 End: 58-13-1345Cuwvlua encounter uapccqmre97/21/2024 11:00 AM EST Appointment [facility] Specialty Clinic (MOB) [address] [place] [address] Evenity. Yumiko AGUILERAP. [facility]osisK[facility]BR[facility] (MOB)Comment on above:Evenity. Yumiko VALENCIA. OsteoporosisStart: 09-89-5817QUIBL-19 Vaccine ( season)COVID-19 Vaccine ( season)[facility] HealthStart: 53-93-6078EWRFD-19 Vaccine ( season)COVID-19 Vaccine ( season)[facility] HealthStart: 76-73-8884Lbwlsmzuo vaccinationFlu vaccine (#1)[facility]Start: 22-97-0332Kfbnqj Wellness Visit (Medicare Advantage)Annual Wellness Visit (Medicare Advantage)[facility] HealthStart: 53-41-2163IagggzczaMercy Health [facility] Work Phone: Start: 04-94-6157Ytleoptcm vaccinationFlu vaccine (#1) [facility]: 04-09-8097Hsjgwd Wellness Visit (AWV)Annual Wellness Visit (AWV)[facility]: 28-16-5860PRBGC-19 Vaccine (3 - Booster for Pfizer series)COVID-19 Vaccine (3 - Booster for Pfizer series) [facility]: 52-07-5238SNHTC-19 Vaccine (3 - Booster for Pfizer series) COVID-19 Vaccine (3 - Booster for Pfizer series)[facility]: 67-56-9749Chkaruutjug Syncytial Virus (RSV) or age 60 yrs+ (1 - 1-dose 60+ series)Respiratory Syncytial Virus (RSV) or age 60 yrs+ (1 - 1-dose 60+ series)[facility]: 97-35-3440Htjispcwc for osteoporosis DEXA (modify frequency per FRAX score)[facility]: 48-57-3382Ikfcapxfn for malignant neoplasm of breastBreast cancer [facility]: 2002 Shingles Vaccine (1 of 2)Shingles Vaccine (1 of 2)[facility]: 1997 Screening for malignant neoplasm of colonNewark Hospital: 88-26-4161Tgnfv [facility]: 72-25-6043Objxxvexw for malignant neoplasm of breast Breast cancer [facility]: 51-23-0549Eqildlqbf C screeningHepatitis C [facility]: 48-08-7000Agduhllaqd ScreenDepression [facility]: 46-71-0972Kdprdrfes C screening Hepatitis C [facility] 1999 panel - Serum or PlasmaAshtabula General HospitalCT ANKLE RIGHT WO CONTRASTCT ANKLE RIGHT WO CONTRAST Imaging STAT 01/20/2022 9:00 AM EDSport Ngin Phone: cT Unspecified body regionAshtabula General Hospital End: 41-63-4286HYX Breast - bilateral screeningSHENANDOAH [facility] [employer] [facility] Phone: Comment on above:1 Occurrences starting 06/27/2024 until 06/27/2024 End: 65-86-0510SDD Skeletal system.axial Views for bone densityDEXA BONE DENSITY AXIAL SKELETON Imaging Routine Encounter for long-term (current) use of medications Asymptomatic menopausal state Osteoporosis, unspecified osteoporosis type, unspecified pathological fracture presence 1 Occurrences starting 07/02/2025 until 07/02/2025on [facility]ft[facility] on above:1 Occurrences starting 07/02/2025 until 07/02/2025MG Breast - bilateral Screening [facility] Immunizations Immunization DateImmunizationNotesCare KtvfgrhoFkbitexd91-21-2056qncahhyxz, high dose seasonal, preservative-freeJennifer Rohrbacher Other [employer] Other 0923552-20-2332litgtveus virus vaccine, unspecified formulationJennifer Rohrbacher DENTAL CERAMIST HELPER Work Phone: [facility]03-30-2022tetanus toxoid, reduced diphtheria toxoid, and acellular pertussis vaccine, adsorbed Radha Chance MD Work Phone: [facility] Work Phone: [phone] 318-845010-178920-60-0412DQGVV-04 Vaccine Pfizer - Documentation Purposes OnlyJennifer Rohrbacher Other [facility]09-20-2021COVID-19 Vaccine Pfizer - Documentation Purposes OnlyJennifer Rohrbacher Other [facility]09-28-2020influenza, seasonal, injectableJennifer Rohrbacher Other [facility]07-01-2019 pneumococcal polysaccharide vaccine, 23 valentJennifer Rohrbacher Other [facility]06-28-2018 pneumococcal conjugate vaccine, 13 valentJennifer Rohrbacher Other [facility]10-25-2016influenza, seasonal, injectableJennifer Rohrbacher Other [facility]12-08-2015influenza, injectable, quadrivalent, contains preservativeJennifer Rohrbacher Other [place] [employer] Other 1054366-25-4919jlkyofpwy, injectable, quadrivalent, preservative freeJennifer Rohrbacher DENTAL CERAMIST HELPER Work Phone: [facility]02-24-2014influenza, injectable, quadrivalent, contains preservativeJennifer Rohrbacher Other [facility]09-19-2012influenza, injectable, quadrivalent, contains preservativeJennifer Rohrbacher Other [facility] Payers DatePayer CategoryPayerPolicy [id number] Health [id number] [id number] 2.0.1.284026.3.57[id number] 2.0.1.265263.3.57[id number] 2.0.1.587928.3.57[id number] 2.0.1.355063.3.57[id number] 2.0.1.880751.3.57[id number] 2.16.840.1.534024.3.57[id number] 2.16.840.1.893773.3.57[id number] 2.16.840.1.439963.3.57[id number] 2.16.840.1.053844.3.57[id number] 2.16.840.1.018590.3.57[id number] 2.16.840.1.122007.3.57[id number] 2.16.840.1.104948.3.57[id number] 2.16.840.1.413934.3.57[id number] 2.16.840.1.123559.3.57[id number] 2.16.840.1.002498.3.57[id number] 2.16.840.1.9[id number] 2.16.840.1.656613.3.579.2.531 Social History DateTypeDetailFacilityStart: 01-20-2022 End: 38-31-8765Uekovsq smoking status NHISSmokes tobacco dailyMiami Valley HospitalSurgery Partners Health Work Phone: History of tobacco useCigarette SmokerSelect Medical Specialty [facility] Work Phone: start: 01-20-2022 End: 97-59-4165Bmanyrlmic smoked current (pack per day) - Spnjbnkm0Sng [facility] CenterCustomcellsStart: 01-20-2022 End: 76-18-8182Mrzdsjs use and exposureSmokeless tobacco non-userMiami Valley HospitalMobiquity Work Phone: start: 01-20-2022 End: 41-11-5286Zizpoki intakeCurrent drinker of alcohol (finding)[employer] Phone: start: 42-75-0074Wbm Assigned At BirthNot on [facility] Work Phone: start: 01-10-2022 End: 69-07-0181Afaibxaq to SARS-CoV-2 (event)Not [facility] HospitalM[facility] Work Phone: start: 06-27-2024 End: 26-04-9865Ist Assigned At [facility] PlumziStart: 07-14-2022 Tobacco smoking status NHISSmoker (finding)[facility] Start: 00-64-2531Uff Assigned At [facility] Start: 88-65-2893Pevglza SDOH Alcohol Iuhwsvcab8GEH SALINAS SURGERY CENTERPicomize Work Phone: How often to you have a drink containing alcohol?2-3 time sa weekFort Belvoir Community HospitalAkros SiliconHow many standard drinks containing alcohol do you have on a typical day?1 or 2Bon [facility] [employer] SolutionsHow often do you have 6 or more drinks on 1 occasion?NeverEMERSON HOSPITALTransparent OutsourcingAverage Number of DrinksNot on [facility] HospitalStart: 50-69-7041LykEsbcah (finding)[facility] Medical Equipment Procedure CodeEquipment CodeEquipment Original TextEquipment IdentifierDates Repair, tendonROD AMISHA TENDONFDAStart: 66-22-5858Ksxguy, tendonROD AMISHA TENDONFDAStart: 21-92-3609Wfzaib, tendonROD AMISHA TENDONFDAStart: 01-19-2018 Repair, tendonROD AMISHA TENDONFDAStart: 31-64-3771Ixuxci, tendonROD AMISHA TENDONFDAStart: 56-99-8102Nqniimq of wire or pinSUTURE ANCHOR, GUERO CORKSCREWFDA Start: 69-94-2970Vmrhkuz of wire or pinSUTURE ANCHOR, GUERO CORKSCREWFDAStart: 72-63-0934Hxzgflt of wire or pinSUTURE ANCHOR, GUERO CORKSCREWFDAStart: 86-65-0131Dzrlpli of wire or pinSUTURE ANCHOR, GUERO CORKSCREWFDAStart: 98-30-6539Dpyshoi of wire or pinSUTURE ANCHOR, GUERO CORKSCREWFDAStart: 85-04-9349Fsmduk (Disp) 23 Gauge (Bd Regular Bevel [place]) 23 gauge x 3/4 needleStart: 29-18-9802Gpmfgb (Disp) 23 Gauge (Bd Regular Bevel [place]) 23 gauge x 3/4 needleStart: 50-23-4203Ajvdvo (Disp) 23 Gauge (Bd Regular Bevel [place]) 23 gauge x 3/4 needleStart: 02-23-3477Lyjolo (Disp) 23 Gauge (Bd Regular Bevel [place]) 23 gauge x 3/4 needleStart: 07-02-2024 Goals DatePatient GoalDesired Activity/State Clinical Notes 01-20-2022 to 2025 Note Date & ZytsOmatRxlvpmtd97-90-9061 Evaluation note* Diagnosis Onset Date Resolution Status Admit Date UTI (urinary tract infection) acuteOctober 2024 11:06amEncounter for medication managementacuteSeptember 03, 2025 11:57amOsteopeniaacuteNov2024 11:57amPost-menopauseacute November 2024 11:57amVitamin D deficiencyacuteNov2024 11:57am [facility] Work Phone: 1(136) 247-689908-11-2025 Hospital Discharge instructions* Discharge Instructions* Natalia Urban RN - 06/03/2025 10:15 AM EDT Verbally reviewed discharge instructions for care and follow up. Previous print out of these instructions were given with prior treatment.Patient verbalized understanding of these instructions. Today's copy offered and declined. documented in this encounterBon [facility]07-[facility] Evaluation note* Diagnosis Onset Date Resolution Status Admit Date Acid reflux acuteJuly 2024 11:17amAge related osteoporosisacuteJuly 2024 11:17am BMI 20.0-20.9, adultacuteJuly 2024 11:17amChronic bronchitisacuteJuly 2024 11:17amEssential hypertensionacuteJuly 2024 11:17amMedicare annual wellness visit, subsequentacuteJuly 2024 11:17amMild hyperlipidemia acuteJuly 2024 11:17amNicotine dependenceacuteJuly 2024 11:17am Screening for breast canceracuteJuly 2024 11:17amScreening for lung cancer acuteJuly 2024 11:17am [facility] Work Phone: 1(143) 923-247007-28-2025 Evaluation note* Diagnosis Onset Date Resolution Status Admit Date Acid reflux acuteJuly 2024 11:17amAge related osteoporosisacuteJuly 2024 11:17am BMI 20.0-20.9, adultacuteJuly 2024 11:17amChronic bronchitisacuteJuly 2024 11:17amEssential hypertensionacuteJuly 2024 11:17amMedicare annual wellness visit, subsequentacutely 2024 11:17amMild hyperlipidemia acuteJuly 2024 11:17amNicotine dependenceacuteJuly 2024 11:17am Screening for breast canceracuteJuly 2024 11:17amScreening for lung cancer acuteJuly 2024 11:17amUTI (urinary tract infection)acuteOctober 2024 11:06am [facility] Work Phone: [phone]) 450-787307-14-2025 Hospital Discharge instructions* Discharge Instructions* Debo Pham RN - 05/06/2025 9:52 AM EDT Verbally reviewed discharge instructions for care and follow up. Previous print out of these instructions were given with prior treatment.Patient verbalized understanding of these instructions. Today's copy offered and declined. documented in this [facility]06-16-2025 Hospital Discharge instructions* Discharge Instructions* Debo Pham RN - 04/08/2025 10:16 AM EDT Verbally reviewed discharge instructions for care and follow up. Previous print out of these instructions were given with prior treatment.Patient verbalized understanding of these instructions. Today's copy offered and declined. documented in this [facility]05-13-2025 Hospital Discharge instructions* Discharge Instructions* Natalia Urban RN - 03/05/2025 10:49 AM EDT Verbally reviewed discharge instructions for care and follow up. Previous print out of these instructions were given with prior treatment.Patient verbalized understanding of these instructions. Today's copy offered and declined. documented in this encounterSpotsylvania Regional Medical Center03-18-2025 Hospital Discharge instructions* Discharge Instructions* Debo Pham RN - 01/08/2025 10:20 AM EDT Verbally reviewed discharge instructions for care and follow up. Previous print out of these instructions were given with prior treatment.Patient verbalized understanding of these instructions. Today's copy offered and declined. documented in this [facility]02-18-2025 Hospital Discharge instructions* Discharge Instructions* Debo Pham RN - 12/11/2024 10:38 AM EST Verbally reviewed discharge instructions for care and follow up. Previous print out of these instructions were given with prior treatment.Patient verbalized understanding of these instructions. Today's copy offered and declined. documented in this [facility]02-16-2025 Hospital Discharge instructions* Discharge Instructions* Keegan Tejeda MD - 12/09/2024 11:44 PM EST Follow up with the listed physician or medical clinic within 24-72 hours. Return to the Emergency Department if you develop any new or concerning symptoms or if your are getting worse * Attachments The following attachments cannot be sent through Care Everywhere. * Contusion (Danish) documented in this [facility]01-15-2025 Hospital Discharge instructions* Discharge Instructions* Pricila Malhotra RN - 11/07/2024 11:00 AM EST Verbally reviewed discharge instructions for care and follow up. Previous print out of these instructions were given with prior treatment.Patient verbalized understanding of these instructions. Today's copy offered and declined. documented in this encounterSpotsylvania Regional Medical Center12-18-2024 Hospital Discharge instructions* Discharge Instructions* Danyell Yost RN - 10/10/2024 11:46 AM EST Verbally reviewed discharge instructions for care and follow up. Previous print out of these instructions were given with prior treatment.Patient verbalized understanding of these instructions. Today's copy offered and declined. documented in this encounterSpotsylvania Regional Medical Center11-21-2024 Hospital Discharge instructions* Discharge Instructions* Debo Pham RN - 09/13/2024 11:12 AM EST Verbally reviewed discharge instructions for care and follow up. Previous print out of these instructions were given with prior treatment.Patient verbalized understanding of these instructions. Today's copy offered and declined. documented in this encounterSpotsylvania Regional Medical Center10-24-2024 Hospital Discharge instructions* Discharge Instructions* Danyell Yost RN - 08/16/2024 11:15 AM EDT Verbally reviewed discharge instructions for care and follow up. Previous print out of these instructions were given with prior treatment.Patient verbalized understanding of these instructions. Today's copy offered and declined. documented in this encounterBon [facility]01-[facility] Evaluation note* Encounter Date Diagnosis Assessment Notes Treatment Notes Treatment Clinical Notes Oct, Essential hypertension (ICD-10 - I10) TO GOAL. Prior to your visit today we reviewed your chart and outlined the tetsing and treatment needed for your care. We discussed the possible complications of high blood pressure, including increased risk for heart disease, stroke, and kidney disease. Our goal is to keep your blood pressure below 130/85 (an preferably < 120/80) and maintain a healthy weight with a BMI less than 26. We are working together to acheive these goals with the following plan; healthier diet, increased activity and exercise, understanding your medicaitons, and your complaince. You have been given relevant education handouts. Oct,Gastroesophageal reflux disease with esophagitis (ICD-10 - K21.0) Reflux symptoms remain unchanged. Discussed the importance of meal content. They should avoid overeating and eating meals late in the evening. Take medication as directed and we will continue to monitor. Oct,Mild intermittent asthma without complication (ICD-10 - J45.20) Asthma symptoms remain unchanged at this time. Patient denies any recent flare ups. Take medicationas directed and we will continue to monitor. Oct,Mild emphysema (ICD-10 - J43.9)Stable Prior to your visit today we reviewed your chart and outlined the testing and treatment needed for your care. We discussed the possible complications of COPD , including increased risk for acute exacerbation and respiratory failure. Our goal is to keep your COPD under control to avoid exacerbation and hospitalizations. maintain a healthy weight with a BMI less than 26. We are working together to achieve these goals with the following plan; healthier diet, increased activity and exercise, understanding your medications and your compliance, Oct,egenerative disc disease, lumbar (ICD-10 - M51.36)Stable, no current issues. Oct,urrent smoker (ICD-10 - F17.200)We discussed possible complications of smoking including risk of heart disease, stroke, lung disease, and increase risk of cancer. Your goal is to quit smoking. The availability, risks, and benefits of medication used to treat nicotine addiction as releveant to you have been discussed. We are working together to achieve these goals with the following plan; barriers to these goals have been discussed. You have been given relevant education handouts and a summary of your care plan. Your next follow- up visit for this problem is six months, we will continue to ask progress for quitting and willingness to quit at each appointment. [employer] Other 12-08-2023 Evaluation note* Encounter Date Diagnosis Assessment Notes Treatment Notes Treatment Clinical Notes Sep, Essential hypertension (ICD-10 - I10) Discussed with pt due to consistent elevated blood pressure readings would recommend adding an additional blood pressure medicaiton to her regimen. Continue to monitor at home and we will follow-up in 4 weeks for a recheck. Pt verbalizes understanding and agrees to plan of care. [employer] Other 10-23-2023 Evaluation note* Encounter Date Diagnosis Assessment Notes Treatment Notes Treatment Clinical Notes Jul, Bronchitis (ICD-10 - J40) Will obtain and x-ray and will call with results and further recommendations. Tessalon perles as need for persistent cough. Do not chew or crush as it will cause numbing of mouth. X-ray was negative for pneumonia will treat for bronchitis. Discussed diagnosis with patient. Patient to start Zithromax. Patient to take Zithromax daily with food as prescribed. Finish entire courseof antibiotic. Proair inhaler sent today for patient to use PRN cough/wheezing/shortness of breath.Tessalon Pearles ordered to take as needed for cough. Increase fluids and rest. Mlnb-xiy-elhsyok antipyretics as needed. Warning signs and symptoms reviewed with patient today. Patient to go immediately to the ER should she experience any of these. Patient to notify office should her symptoms persist and not improve. Patient verbalizes understanding and agrees to treatment plan. Jul,bnormal lung sounds (ICD-10 - R09.89) Jul,Shortness of breath (ICD-10 - R06.02) Jul,Mild intermittent asthma without complication (ICD-10 - J45.20)Also discussed starting a steroid inhaler for symptoms as she has recurrent episodes of bronchitis and asthma history. Pt is agreeable. Scriprt sent [facility] Other 10-18-2023 Evaluation note* Encounter Date Diagnosis Assessment Notes Treatment Notes Treatment Clinical Notes Jul, Acute cough (ICD-10 - R05.1) Due to being a current smoker and asthma will treat wtih steroid. May continue to use inhaler. Takemedication as prescribed. Complete all doses of medication, even if sx are no longer present. Pt instructed to take medication with food. Informed pt that medication may make pt feel jittery, hungry and give you extra energy. Medication may also increase blood pressure and increase blood sugar. Pt also advised not to take NSAIDs while using steroids. Call with any worsening signs or symptoms. Pt verbalzies understanding and agrees to plan of care. Jul,Nasal congestion (ICD-10 - R09.81)Patient's symptom and symptom onset correlate with common cold. Illness should run it's course overa period of 3 to 7 days. Discussed treatment for symptomatic relief including decongestant, cough medication, expectorant, and Tylenol or Motrin for discomfort. Flonase is an inhaled corticosteroid. It may help alleviate sinus pressure and pressure behind ear drum. Use as directed for symptom relief. Discussed benefit of humidifier, steamy showers, or nasal saline spray to help loosen and facilitate expectoration of mucus. Patient to follow-up if symptoms do not improve or improve then worsen over the next week or so. Patient to seek care at ER if onset of chest pain, shortness of breath or wheezing occurs. Patient verbalizes understanding and agrees to plan of care. Jul,OtherThe patient was seen per scheduled virtual care visit in their home and my location (provider) is in the family practice office setting. The staff involved in visit was myself, Yumiko Morrell DNP, DENTAL CERAMIST HELPER, LICENSED PHARMACIST (provider). Time spent with patient was approximately 10 minutes. [facility] Other 09-12-2023 Evaluation note* Encounter Date Diagnosis Assessment Notes Treatment Notes Treatment Clinical Notes Jun, COPD exacerbation (ICD-10 - J44. 1) The patient was seen today for ER/Urgent Care follow-up. All available records were reviewed and discussed with the patient. All new medications prescribed were reviewed. Any additional changes are noted above. Discussed diagnosis with patient. Continue with ATB and steroids as prescribed Medication profile and possible SE reviewed with patient. Take as directed. Continue Albuterol inhaler PRN sob, wheezing, cough. Notify office if not improving or worsening. Patient verbalizes understanding and agrees totreatment plan. Jun,cute right-sided thoracic back pain (ICD-10 - M54.6)NSAIDS as prescribed,heating pad prn, remain active, low-stress aerobic exercise gradually increase(walking, bike riding, swimming), avoid jerky, hurried movements when lifting, lift with legs(do not bend back), keep objects close to the body when lifting, avoid twisting, bending, reaching while lifting, avoid prolonged sitting, change positions often while sitting, a soft support for small of back, firm mattress-lying supine with knees flexed on pillows when sleeping. Take muscle relaxer as directed. Do not drink with alcohol or use with other recreational drugs. May cause severe drowsiness. Do not operate a motor vehicle until you know how this medication will effect you. Jun,Essential hypertension (ICD-10 - I10)Patient blood pressure reading elevated while in the office today. Instructed patient to check blood pressures at home daily. Patient to notify office should SBP > 140 or DBP > 90 consistently.Patient verbalizes understanding and agrees to treatment plan. call next week with updated numbers [facility] Other 09-10-2023 NoteEducation Materials ENT Cough, Adult A cough helps to clear your throat and lungs. A cough may be a sign of an illness or another medical condition. An acute cough may only last 2?3 weeks, while a chronic cough may last 8 or more weeks. Many things can cause a cough. They include: ? Germs (viruses or bacteria) that attack the airway. ? Breathing in things that bother (irritate) your lungs. ? Allergies. ? Asthma. ? Mucus that runs down the back of your throat (postnasal drip). ? Smoking. ? Acid backing up from the stomach into the tube that moves food from the mouth to the stomach (gastroesophageal reflux). ? Some medicines. ? Lung problems. ? Other medical conditions, such as heart failure or a blood clot in the lung (pulmonary embolism). Follow these instructions at home: Medicines ? Take psuz-xcc-btidzxe and prescription medicines only as told by your doctor. ? Talk with your doctor before you take medicines that stop a cough (cough suppressants). Lifestyle ? Do not smoke, and try not to be around smoke. Do not use any products that contain nicotine or tobacco, such as cigarettes, e-cigarettes, and chewing tobacco. If you need help quitting, ask your doctor. ? Drink enough fluid to keep your pee (urine) pale yellow. ? Avoid caffeine. ? Do not drink alcohol if your doctor tells you not to drink. General instructions ? Watch for any changes in your cough. Tell your doctor about them. ? Always cover your mouth when you cough. ? Stay away from things that make you cough, such as perfume, candles, campfire smoke, or cleaning products. ? If the air is dry, use a cool mist vaporizer or humidifier in your home. ? If your cough is worse at night, try using extra pillows to raise your head up higher while you sleep. ? Rest as needed. ? Keep all follow-up visits as told by your doctor. This is important. Contact a doctor if: ? You have new symptoms. ? You cough up pus. ? Your cough does not get better after 2?3 weeks, or your cough gets worse. ? Cough medicine does not help your cough and you are not sleeping well. ? You have pain that gets worse or pain that is not helped with medicine. ? You have a fever. ? You are losing weight and you do not know why. ? You have night sweats. Get help right away if: ? You cough up blood. ? You have trouble breathing. ? Your heartbeat is very fast. These symptoms may be an emergency. Do not wait to see if the symptoms will go away. Get medical help right away. Call your local emergency services (911 in the [place] Do not drive yourself to the hospital. Summary ? A cough helps to clear your throat and lungs. Many things can cause a cough. ? Take mjnz-nwz-ixmyqmy and prescription medicines only as told by your doctor. ? Always cover your mouth when you cough. ? Contact a doctor if you have new symptoms or you have a cough that does not get better or gets worse. This information is not intended to replace advice given to you by your health care provider. Make sure you discuss any questions you have with your health care provider. Document Revised: 11/28/2020 Document Reviewed: 10/29/2019 [employer] Patient Education ? 2022 [employer] [facility]07-10-2023 Evaluation note* Encounter Date Diagnosis Assessment Notes Treatment Notes Treatment Clinical Notes Apr, Medicare annual wellness visit, subsequent (ICD-10 - Z00.00) Personalized health advice was given to the beneficiary with a referral, if appropriate, to health education of preventative counseling services or programs aimed at reducing identified risk factors and improving self-management or community-based lifestyle interventions to reduce health risks and promote self- management and wellness, including weight loss, physical activity, smoking cessation, fall prevention and nutrition. A written plan for screenings discussed, including colonoscopy, mammography, flu vaccination, other vaccinations if at risk, routine lab studies, eye exams, glaucoma screening, skin checks, risk factors for medical problems discussed, including BP control, obesity, and need for consistent exercise. Advanced care planning reviewed. Counseling was provided here today - specifically in regard to any positively answered questions as noted above. Apr,rimary hypertension (ICD-10 - I10)Elevated in office today. We discussed treatment options and will increase Losartan to 100mg, follow-up with office in 3 weeks with updated blood pressure readings. Prior to your visit today we reviewed your chart and outlined the tetsing and treatment needed for your care. We discussed the possible complications of high blood pressure, including increased risk for heart disease, stroke, and kidney disease. Our goal is to keep your blood pressure below 130/85 (an preferably < 120/80) and maintain a healthy weight with a BMI less than 26. We are working together to acheive these goals with the following plan; healthier diet, increased activity and exercise, understanding your medicaitons, and your complaince. You have been given relevant education handouts. Apr,Screening for lung cancer (ICD-10 - Z12.2)Patient is a current smoker, age 72, asymptomatic, actual pack year (number of years): 30 plus. Ana ent has participated in a shared decision making session during which benefits and potential risks of CT lung screening were discussed, as well as follow-up diagnostic testing, over-diagnosis, false positive rates and radiation exposure. The patient was informed of the importance of adherence to annual screening, impact of comorbidities, and ability/willingness to undergo diagnosis and treatment.The patient was informed of the importance of smoking cessation and/or maintaining smoking abstinence, including the off of Medicare covered tobacco cessation counseling services, if applicable. Apr,Encounter for screening mammogram for malignant neoplasm of breast (ICD-10 - Z12.31)Patient is due for her routine yearly screening mammogram. Screening mammogram ordered today. Apr,OPD exacerbation (ICD-10 - J44.1)Discussed diagnosis with patient. She does seem to be having an exacerbation of her COPD with fevers per her symptoms. Patient to start Doxycylne. Patient to take daily with food as prescribed. Finish entire course of antibiotic. Continue Albuterol PRN cough/wheezing/shortness of breath. Notify office if not improving. Increase fluids and rest. Oixx-yxz-jjyyyya antipyretics as needed. Warning signs and symptoms reviewed with patient today. Patient to go immediately to the ER should she experience any of these. Patient to notify office should her symptoms persist and not improve. Patient verbalizes understanding and agrees to treatment plan. Apr,Vitamin B12 deficiency (ICD-10 - E53.8)Patient meets criteria for vitamin B12 deficiency/insufficiency. We discussed the etiology of this d eficiency and the natural sources that can be obtained in the diet including meat, poultry, fish etc. This vitamin is often not well absorbed through the gut, she is on monthly injections, due for a repeat level. Apr,astroesophageal reflux disease with esophagitis (ICD-10 - K21.0) Reflux symptoms remain unchanged. Discussed the importance of meal content. They should avoid overeating and eating meals late in the evening. Take medication as directed and we will continue to monitor. Apr,urrent smoker (ICD-10 - F17.200)We discussed possible complications of smoking including risk of heart disease, stroke, lung disease, and increase risk of cancer. Your goal is to quit smoking. The availability, risks, and benefits of medication used to treat nicotine addiction as releveant to you have been discussed. We are working together to achieve these goals with the following plan; barriers to these goals have been discussed. You have been given relevant education handouts and a summary of your care plan. Your next follow- up visit for this problem is six months, we will continue to ask progress for quitting and willingness to quit at each appointment. Apr,Mild intermittent asthma without complication (ICD-10 - J45.20) Asthma symptoms remain unchanged at this time. Apr,Status post gastric bypass for obesity (ICD-10 - Z98.84)Gastric bypass in 2004. [facility] Other 06-12-2023 History general Narrative - Reported* Type Description Date Medical History mild hyperlipidemia Medical Historylumbar disk disease and arthritis (L5-S1 x-rays 04/04)Medical Historycervical arthritisMedical Historygastric bypass surgery/MORBID OBESITY Medical Historychronic bronchitisMedical Historynicotine dependenceMedical Historyvitamin B12 deficiencyMedical HistoryDepression with anxietyMedical HistoryGI BleedMedical HistoryBack pain with radiationMedical History05/03/12 Colonoscopy- Dr. MayMedical History05/04/16 EGD- marginal ulcersMedical History07/15/16 EGD - healed marginal ulcer, second healing ulcer repeat in 6 monthsMedical History01/19/2017 EGD w/Dilatation- Marginal ulcer, marked esophageal spasmMedical HistoryRosaceaMedical HistoryRosaceaMedical History Marginal ulcerMedical HistoryEsophageal spasmMedical HistoryContracture of joint of finger of right handMedical HistoryNontraumatic rupture of tendon of finger of right handMedical HistoryAbnormal mammogram of left breastSurgical History gastric bypass surgery 09/2006Surgical Historyright carpal tunnel surgery Surgical Historytubal ligationSurgical HistoryEGD- ulcers-2015Hospitalization Historysee aboveHospitalization Historyepigastric pain04/2016 [facility] Other 06-12-2023 History general Narrative - Reported* Type Description Date Medical History mild hyperlipidemia Medical Historylumbar disk disease and arthritis (L5-S1 x-rays 04/04)Medical Historycervical arthritisMedical Historygastric bypass surgery/MORBID OBESITY Medical Historychronic bronchitisMedical Historynicotine dependenceMedical Historyvitamin B12 deficiencyMedical HistoryDepression with anxietyMedical HistoryGI BleedMedical HistoryBack pain with radiationMedical History05/03/12 Colonoscopy- Dr. MayMedical History05/04/16 EGD- marginal ulcersMedical History07/15/16 EGD - healed marginal ulcer, second healing ulcer repeat in 6 monthsMedical History01/19/2017 EGD w/Dilatation- Marginal ulcer, marked esophageal spasmMedical HistoryRosaceaMedical HistoryRosaceaMedical History Marginal ulcerMedical HistoryEsophageal spasmMedical HistoryContracture of joint of finger of right handMedical HistoryNontraumatic rupture of tendon of finger of right handMedical HistoryAbnormal mammogram of left breastSurgical History gastric bypass surgery 09/2006Surgical Historyright carpal tunnel surgery Surgical Historytubal ligationSurgical HistoryEGD- ulcersSurgical History Fusion of right ring fingerHospitalization Historysee aboveHospitalization Historyepigastric pain04/2016 [facility] Other 04-11-2023 Evaluation note* Encounter Date Diagnosis Assessment Notes Treatment Notes Treatment Clinical Notes Jan, Primary hypertension (ICD-10 - I 10) To goal. Prior to your visit today we reviewed your chart and outlined the tetsing and treatment needed for your care. We discussed the possible complications of high blood pressure, including increased risk for heart disease, stroke, and kidney disease. Our goal is to keep your blood pressure below 130/85 (an preferably < 120/80) and maintain a healthy weight with a BMI less than 26. We are working together to acheive these goals with the following plan; healthier diet, increased activity and exercise, understanding your medicaitons, and your complaince. You have been given relevant education handouts. [facility] Other 02-08-2023 Evaluation note* Encounter Date Diagnosis Assessment Notes Treatment Notes Treatment Clinical Notes Nov, Mild intermittent asthma without complication (ICD-10 - J45.20) [facility] Other 01-09-2023 Evaluation note* Encounter Date Diagnosis Assessment Notes Treatment Notes Treatment Clinical Notes Oct, Primary hypertension (ICD-10 - I 10) Blood pressure contiues to be elevated despite current dose of medication. DIscussed increasing thedose. Pt is agreeable. Discussed with pt to call the office in 3-4 weeks with updated blood pressure readings and will adjust furhter if needed. Will follow-up in 3 months. Pt verbalizes understanding and agrees to plan of care. Prior to your visit today we reviewed your chart and outlined the tetsing and treatment needed for your care. We discussed the possible complications of high blood pressure, including increased risk for heart disease, stroke, and kidney disease. Our goal is to keep your blood pressure below 130/85 (an preferably < 120/80) and maintain a healthy weight with a BMI less than 26. We are working together to acheive these goals with the following plan; healthier diet, increased activity and exercise, understanding your medicaitons, and your complaince. You have been given relevant education handouts. Oct,Need for vaccination (ICD-10 - Z23) [facility] Other 12-12-2022 Evaluation note* Encounter Date Diagnosis Assessment Notes Treatment Notes Treatment Clinical Notes Sep, Primary hypertension (ICD-10 - I 10) Take medication as prescribed, keep follow up appointments, get any testing that's been ordered done in a timely fashion. Do not smoke. Call if any questions or problems. For Hypertension: Patient isadvised to work on healthy diet choices and appropriate servings, weight control, regular exercise as directed, and salt avoidance. Monitor blood pressures at home and call if above target. Follow-upin 4 weeks to determine effectiveness of medication. [facility] Other 12-12-2022 Hospital Discharge instructions* Discharge Instructions* Luis F Bae PA-C - 10/04/2022 12:53 PM EST Follow-up with your primary care doctor today as scheduled at 2 PM. Continue other home medicationsas prescribed. Promptly return to emergency department for new, changing, worsening of symptoms or other concerns. * Attachments The following attachments cannot be sent through Care Everywhere. * Blood Pressure: Elevated (Danish) documented in [facility] [employer] Phone: 1([phone]) 850-556309-21-2022 [facility]* Encounter Date Diagnosis Assessment Notes Treatment Notes Treatment Clinical Notes Jun, Dysuria (ICD-10 - R30.0) Jun,cute cystitis with hematuria (ICD-10 - N30.01)Reviewed results of urine dipstick with patient, and given both symptoms and physical exam, explaine d that a urinary tract infection is likely. The patient is encouraged to increased fluid intake, take antibiotics as prescribed, and to finish the entire course of antibiotics. Urine culture to be completed and will call with results in 3- 5 days. Patient instructed to follow up if symptoms are notimproving within the next 5-7 days. Signs and symptoms of worsening symptoms (including pyelonephritis, and urosepsis) are reviewed with the patient, and the patient is instructed to go to the ER if this would occur. [facility] Other 08-10-2022 Evaluation note* Encounter Date Diagnosis Assessment Notes Treatment Notes Treatment Clinical Notes May, Vitamin D deficiency (ICD-10 - E 55.9) [facility] Other 07-21-2022 Evaluation note* Encounter Date Diagnosis Assessment Notes Treatment Notes Treatment Clinical Notes Apr, Spondylolisthesis of lumbosacral region (ICD-10 - M43.17) Apr,ther chronic pain (ICD-10 - G89.29) Apr,Low back pain, unspecified (ICD-10 - M54.50) [facility] Other 07-08-2022 Evaluation note* Encounter Date Diagnosis Assessment Notes Treatment Notes Treatment Clinical Notes Apr, Medicare annual wellness visit, subsequent (ICD-10 - Z00.00) Personalized health advice was given to the beneficiary with a referral, if appropriate, to health education of preventative counseling services or programs aimed at reducing identified risk factors and improving self-management or community-based lifestyle interventions to reduce health risks and promote self- management and wellness, including weight loss, physical activity, smoking cessation, fall prevention and nutrition. A written plan for screenings discussed, including colonoscopy, mammography, flu vaccination, other vaccinations if at risk, routine lab studies, eye exams, glaucoma screening, skin checks, risk factors for medical problems discussed, including BP control, obesity, and need for consistent exercise. Advanced care planning reviewed. Counseling was provided here today - specifically in regard to any positively answered questions as noted above. Prescription should be under the [facility] assessment. Uses as neeeded for rash. Apr,Essential hypertension (ICD-10 - I10)To goal. She was on blood pressure medication in the past, she had gastric bypass and lost a significant amount of weight and was able to stop taking the medication. Prior to your visit today we reviewed your chart and outlined the tetsing and treatment needed for your care. We discussed the possible complications of high blood pressure, including increased risk for heart disease, stroke, and kidney disease. Our goal is to keep your blood pressure below 130/85 (an preferably < 120/80) and maintain a healthy weight with a BMI less than 26. We are working together to acheive these goals with the following plan; healthier diet, increased activity and exercise, understanding your medicaitons, and your complaince. You have been given relevant education handouts. Apr,Gastroesophageal reflux disease with esophagitis (ICD-10 - K21.0) Stable, denies any breakthrough symptoms. Reflux symptoms remain unchanged. Discussed the importance of meal content. They should avoid overeating and eating meals late in the evening. Take medication as directed and we will continue to monitor. Denies any blood in stool. Apr,Mild intermittent asthma without complication (ICD-10 - J45.20) Stable. Prior to your visit today we reviewed your chart and outlined the testing and treatment needed for your care. We discussed the possible complications of Asthma/COPD , including increased risk for acute exacerbation and respiratory failure. Our goal is to keep your Asthma/COPD under control to avoidexacerbation and hospitalizations. maintain a healthy weight with a BMI less than 26. We are working together to achieve these goals with the following plan; healthier diet, increased activity and exercise, understanding your medications and your compliance, Apr,tatus post gastric bypass for obesity (ICD-10 - Z98.84) Apr,Vitamin B12 deficiency (ICD-10 - E53.8)Her last level was 344, continued B12 injections, will check labs. Will call with results Apr,Vitamin D deficiency (ICD-10 - E55.9)History of Vitamin D defiecency, labs ordered. Laboratory tests ordered. Will call with results. It you do not here from the office in 1 week call for results. Apr,pondylolisthesis of lumbosacral region (ICD-10 - M43.17)Denies any issues currently, does report that it intermittently flares Apr,osacea (ICD-10 - L71.9)Stable with prn use of medication. Apr,Encounter for screening mammogram for malignant neoplasm of breast (ICD-10 - Z12.31)Patient is due for her routine yearly screening mammogram. Screening mammogram ordered today. Apr,creening for osteoporosis (ICD-10 - Z13.820)Patient is postmenopausal and therefore at risk for osteoporosis. Risks and benefits of DEXA scan discussed with patient today. She is due for DEXA scan. Patient is interested in getting a DEXA scan today. DEXA scan ordered today. Apr,ost-menopausal (ICD-10 - Z78.0) Apr,steopenia of multiple sites (ICD-10 - M85.89) Apr,urrent smoker (ICD-10 - F17.200)Discussed low dose CT scan due to smoking history. She would like to proceed. Form faxed to [facility]. Patient is a current smoker, age 71 asymptomatic, actual pack year (number of years):.40 Patient has participated in a shared decision making session during which benefits and potential risks of CT lung screening were discussed, as well as follow-up diagnostic testing, over-diagnosis, false positive rates and radiation exposure. The patient was informed of the importance of adherence to annual screening, impact of comorbidities, and ability/willingness to undergo diagnosis and treatment. The patient was informed of the importance of smoking cessation and/or maintaining smoking abstinence, including the off of Medicare covered tobacco cessation counseling services, if applicable. Patient is ready to quit. Faxed Form to the [facility] program as this has coaching and medication therapy. We discussed possible complications of smoking including risk of heart disease, stroke, lung disease, and increase risk of cancer. Your goal is to quit smoking. The availability, risks, and benefits of medication used to treat nicotine addiction as releveant to you have been discussed. We are working together to achieve these goals with the following plan; barriers to these goals have been discussed. You have been given relevant education handouts and a summary of your care plan. Your next follow-up visit for this problem is six months, we will continue to ask progress for quitting and willingness to quit at each appointment. Apr,creening for colon cancer (ICD-10 - Z12.11)Patient due for screening colonoscopy. Referral sent to GI today. [facility] Other 06-12-2022 History general Narrative - Reported* Type Description Date Medical History mild hyperlipidemia Medical Historylumbar disk disease and arthritis (L5-S1 x-rays 04/04)Medical Historycervical arthritisMedical Historygastric bypass surgery/MORBID OBESITY Medical Historychronic bronchitisMedical Historynicotine dependenceMedical Historyvitamin B12 deficiencyMedical HistoryDepression with anxietyMedical HistoryGI BleedMedical HistoryBack pain with radiationMedical History05/03/12 Colonoscopy- Dr. MayMedical History05/04/16 EGD- marginal ulcersMedical History07/15/16 EGD - healed marginal ulcer, second healing ulcer repeat in 6 monthsMedical History01/19/2017 EGD w/Dilatation- Marginal ulcer, marked esophageal spasmSurgical Historygastric bypass surgery 09/2006Surgical History right carpal tunnel surgerySurgical Historytubal ligationSurgical HistoryEGD- ulcersHospitalization Historysee aboveHospitalization Historyepigastric pain04/2016 [facility] Other 03-30-2022 Hospital Discharge instructions* Instructions* Radha Chance MD - 01/20/2022 Tylenol and/or Motrin as needed for pain. Ice ankle for 5 to 10-minute intervals as desired for comfort. No water to skin adhesive for 48 hours. Follow-up with primary care 3 to 5 days if ankle pain is not resolved. Seek medical attention for any signs of infection from the any worsening pain or any other acute concerns * Attachments The following attachments cannot be sent through Care Everywhere. * Lacerations: Adhesives (Danish) * Musculoskeletal Pain (Danish) [facility] Phone: evaluation note* Diagnosis Facial laceration, initial encounter- Primary Acute right ankle pain documented in this encounter [facility] Phone: evaluation noteNo InformationNort Work For [employer] Other Evaluation noteNo assessment information available [facility] Work Phone: Evaluation note* Diagnosis Elevated blood pressure reading without diagnosis of hypertension- Primary [facility] Phone: evalqvsjit note* Diagnosis Age-related osteoporosis without current pathological fracture- Primary Senile osteoporosis [facility]* Diagnosis Postmenopausal state Asymptomatic postmenopausal status (age-related) (natural) Special screening for osteoporosis documented [email or web address]* Diagnosis Encounter for screening mammogram for malignant neoplasm of breast Other screening mammogram documented [email or web address]* Diagnosis Left leg pain- Primary Pain in limb Contusion of right knee, initial encounter Left hand pain Pain in limb [facility]* Diagnosis Age-related osteoporosis without current pathological fracture- Primary Senile osteoporosis [facility]* Diagnosis Age-related osteoporosis without current pathological fracture- Primary Senile osteoporosis [facility]* Diagnosis Onset Date Resolution Status Admit Date Acid reflux acuteJuly 2024 11:17amBMI 20.0-20.9, adultacuteJuly 2024 11:17am Chronic bronchitisacuteJuly 2024 11:17amEssential hypertensionacuteJuly 2024 11:17amMedicare annual wellness visit, subsequentacuteJuly 2024 11:17amMild hyperlipidemiaacuteJuly 2024 11:17amNicotine dependenceacute Annie 2024 11:17amScreening for breast canceracuteJuly 2024 11:17am Screening for lung canceracuteJuly 2024 11:17am [facility] Work Phone: Evaluation note* Diagnosis Osteoporosis, unspecified osteoporosis type, unspecified pathological fracture presence Asymptomatic menopause Encounter for long-term (current) use of medications Encounter for long-term (current) use of other medications Asymptomatic menopausal state Asymptomatic postmenopausal status (age-related) (natural) documented in this encounter [facility]History and physical note Author Jez Omalley [facility] July 14, 2022 8:28amNote Date/TimeSept2021 8:28[place] [address] Gastroenterology H&P Signed Patient: Melanie Brandt MR#: [id number] : 1950 Acct:[id number] Age/Sex: 71 / F Adm Date: 2 Loc: Room: Type: [facility] Attending Dr: Jez Omalley MD Copies to: MD Yumiko Sandoval APRN, LICENSED PHARMACIST~ Date of Service: 07/14/2022 HISTORY & PHYSICAL: Patient's history with special attention to the cardiovascular, pulmonary systems and the current problem was reviewed with the patient immediately prior to the procedure. Present medications and doses reviewed in the EMR. Allergies and pertinent laboratory tests were also re viewedat this time in the EMR. The physical examination, as below, was then performed. Indication, assessment and HPI: 71-year-old female presents for average risk screening colonoscopy Family history of GI malignancy? No PHYSICAL EXAMINATION Mouth and Pharynx : Moist mucus membranes, normal dentition Cardiac: Regular rate, regular rhythm Pulmonary: Clear to auscultation bilaterally, no wheezing Neurological: Alert and oriented x3, no focal deficits noted Abdomen: Abdomen soft, non-tender REVIEW OF SYSTEMS Constitutional: Denies malaise, fevers Cardiovascular: Denies chest pain, palpitations Respiratory: Denies shortness of breath, wheezing Gastrointestinal: Per HPI Genitourinary: Denies dysuria, polyuria Musculoskeletal: Denies joint swelling, joint stiffness Neurological: Denies numbness, tingling Integumentary: Denies rashes, skin lesions Endocrine: Denies fatigue, weight loss Written informed consent obtained from the patient. Risks (including but not limited to perforation, infection, bloating, bleeding, need for emergent surgeryand loss of life), benefits and alternatives explained and questions answered. The patient verbalized understanding. Based on history patient is an appropriate candidate for the procedure. Jez Omalley MD Documented By: Jez Omalley MD 07/14/22826 Signed By: <Electronically signed by Jez Omalley MD> 07/14/[address] [facility] Work Phone: Hisahwj general Narrative - Reported* Type Description Date Medical History mild hyperlipidemia Medical Historylumbar disk disease and arthritis (L5-S1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
== END 2025-09-12 10:23 | disposition home or self-care (01) ==
PROVIDERS: PCP Nurse Practitioner Family; Visit Provider Nurse Practitioner Family
DX: Z12.31 Encounter for screening mammogram for malignant neoplasm of breast (principal)
CPT/HCPCS: 77063; 77067